=== PATIENT | female | born 1955 | race Caucasian/White ===

== ENCOUNTER 2020-05-10 22:35 | Inpatient (IN) | payer BC, SELFPAY ==
[2020-05-10 22:38] VITALS: BP 135/100; PULSE 66; RESP 20; TEMP 36.1; O2SAT 100; BMI 19.2
--- NOTE | 2020-05-10 22:44 | CTR_ITS ---
PROCEDURE INFORMATION: Exam: CT Abdomen And Pelvis With Contrast Exam date and time: 05/10/2020 10:58 PM Age: 64 years old Clinical indication: Nausea and vomiting; Patient HX: C/O abd pain w n/v; Additional info: Abdominal pain TECHNIQUE: Imaging protocol: Computed tomography of the abdomen and pelvis with intravenous contrast. Radiation optimization: All CT scans at this facility use at least one of these dose optimization techniques: automated exposure control; mA and/or kV adjustment per patient size (includes targeted exams where dose is matched to clinical indication); or iterative reconstruction. Contrast material: VISI 320; Contrast volume: 75 ml; Contrast route: INTRAVENOUS (IV); COMPARISON: No relevant prior studies available. RADIATION DOSE METRICS: Total DLP (mGy-cm): 199.88 FINDINGS: Liver: Normal. No mass. Gallbladder and bile ducts: Normal. No calcified stones. No ductal dilation. Pancreas: Normal. No ductal dilation. Spleen: Normal. No splenomegaly. Adrenal glands: Normal. No mass. Kidneys and ureters: Normal. No hydronephrosis. Stomach and bowel: There are prominent fluid-filled loops of small bowel present proximally with nondilated small bowel loops seen distally, findings compatible with small-bowel obstruction. The transition is indeterminate. Diverticula are seen on the sigmoid colon. There are no inflammatory changes seen to suggest diverticulitis. Appendix: No evidence of appendicitis. Intraperitoneal space: Unremarkable. No free air. No significant fluid collection. Vasculature: Unremarkable. No abdominal aortic aneurysm. Lymph nodes: Unremarkable. No enlarged lymph nodes. Urinary bladder: Unremarkable as visualized. Reproductive: Unremarkable as visualized. Bones/joints: Unremarkable. No acute fracture. Soft tissues: Unremarkable. CT/CT abdomen pelvis w con* [id number] IMPRESSION: 1. Dilated fluid-filled loops of small bowel are seen proximally with nondilated loops present distally, findings compatible with a small-bowel obstruction. The transition is indeterminate. 2. Diverticulosis of the sigmoid colon Radiation Dose CTDIVOL = (mGy): DLP = 199.88 (mGy-cm)
[2020-05-10 23:01] LABS: Basophils # 0.1 10^3/uL (0.0-0.1); Basophils % 0.3 %; Eosinophils # 0.3 10^3/uL (0.0-0.8); Hematocrit 47.1 % (37.0-47.0); Hemoglobin 15.8 g/dL (11.5-15.3); Lymphocytes # 5.7 10^3/uL (0.8-4.8); Mean Corpuscular HGB Conc 33.5 g/dL (30.0-36.0); Mean Corpuscular Hemoglobin 30.6 pg (28.0-34.0); Mean Corpuscular Volume 91.3 fL (81-99); Mean Platelet Volume 10.3 fL (7.4-10.4); Monocytes # 1.3 10^3/uL (0.2-0.9); Monocytes % 5.2 %; Neutrophils # 18.16 10^3/uL (1.8-7.7); Neutrophils % 70.6 %; Nucleated Red Blood Cells % 0 %; Platelet Count 283 10^3/cmm (130-400); Red Blood Count 5.16 10^6/uL (4.1-5.3); Red Cell Distribution Width 12.1 % (12.1-15.1); White Blood Count 25.7 10^3/uL (4.0-10.0)
[2020-05-10] MEDS: sodium chloride 0.9% 1,000 ML 999 ML IV (23:12)
[2020-05-10 23:17] LABS: Alanine Aminotransferase 21 U/L (0-33); Albumin Level 4.6 g/dL (3.5-5.2); Alkaline Phosphatase 107 IU/L (35-105); Anion Gap 17.9 (5-19); Aspartate Amino Transferase 19 U/L (0-32); Blood Urea Nitrogen 13 mg/dL (8-23); Calcium 10.4 mg/dL (8.5-10.5); Carbon Dioxide 27 mmol/L (22-29); Chloride 98 mmol/L (98-107); Globulin 3.4 g/dL (1.3-4.6); Glucose 153 mg/dL (65-115); Lipase 40 U/L (13-60); Osmolality Calculated 291 mOsm/kg (285-295); Potassium 3.9 mmol/L (3.5-5.1); Sodium 139 mmol/L (136-145); Total Bilirubin 0.3 mg/dL (0.15-1.2)
[2020-05-10 23:21] LABS: Alcohol Level < 10 mg/dL (0-10)
[2020-05-10] MEDS: iodixanol 320 mg/mL 100mL Btl IV (23:34)
[2020-05-10 23:38] LABS: Slide Review Slide Review Perform
[2020-05-10] MEDS: ondansetron 2 mg/ML SDV 2 mL 4 MG IVP (23:52)
[2020-05-10 23:53] VITALS: RESP 22; O2SAT 100
[2020-05-10] MEDS: morphine 4 mg/mL SDV 1 mL IVP (23:53)
--- NOTE | 2020-05-10 23:54 | ED_ITS ---
HPI - Nausea/Vomiting/Diarrhea General: Chief complaint: Nausea/Vomiting/Diarrhea Stated complaint: N/V - ULCER HX Time Seen by Provider: 05/10/20 22:43 History of Present Illness: HPI Narrative: 64-year-old female presenting with epigastric and periumbilical belly pain starting a couple of hours prior to arrival associated with nausea and vomiting. She evidently has a history of an ulcer as well as an intussusception in the past. She denies any fever. No diarrhea. No one else is been sick. No blood in the stool. MD elicited complaint: nausea, vomiting and abdominal pain Pertinent past history: abdominal surgery Onset (ago): hour(s) Description of vomiting: food contents and watery Associated nausea: Yes Associated abdominal pain: Yes Location of pain: Epigastric and Periumbilical Radiation: does not radiate Pain consistency: constant Severity: severe Quality: stabbing and aching Exacerbating factors: none Relieving factors: movement Associated symtoms: Reports nausea; Denies anxiety, change in vision, chest pain, cough, dizziness, dysuria, fevers/chills, headache(s) or palpitations Review of Systems Const: Denies: fever(s) Eyes: Denies: change in vision ENMT: Denies: odynophagia, swelling of lips/tongue or sinus pain Card: Denies: chest pain, palpitations or irregular heart rhythm Resp: Denies: dyspnea, productive cough, non-productive cough or wheezing GI: Reports: nausea : Denies: dysuria Musc: Denies: back pain or joint warmth Skin/Breast: Denies: rash, pruritus or erythema Neuro: Denies: headache(s), dizziness or vertigo Psych: Denies: anxiety Physical Exam Const: GENERAL APPEARANCE: well developed and ill appearing ORIEN TATION/CONSCIOUSNESS: Yes oriented to person, Yes oriented to place and Yes oriented to time HENMT: COMMON NORMALS: normocephalic, external ears normal and Normal external nose present HEAD & SCALP: normocephalic FACE & SINUS: normal facial exam NOSE: Normal external nose present and No nasal discharge present EXTERNAL EAR: Yes external ears normal THROAT: posterior oropharynx normal; no peritonsillar mass Eye: COMMON NORMALS: Equal, round and reactive pupils present, EOMs intact bilaterally and conjunctivae normal EYELID: eyelids normal CONJUNCTIVA: Y es conjunctivae normal PUPIL: Yes Equal, round and reactive pupils present Neck/C-Spine: GENERAL: No tracheal deviation Chest: COMMONS NORMALS: normal inspection of the chest CHEST: No tenderness Resp: COMMON NORMALS: clear to auscultation bilaterally EFFORT & INSPECTION: No tachypneic, No respiratory distress, No retractions, No uses accessory muscles and No tracheal deviation AUSCULTATION: clear to auscultation bilaterally, no rhonchi, no wheezes and lung sounds not diminished Cardio: COMMON NORMALS: regular rate and regular rhythm RATE: regular rate RHYTHM: regular rhythm HEART SOUNDS: no murmurs PERIPHERAL PULSES: radial pulses present GI: INSPECTION: No abdominal distension AUSCULTATION: No Hyperactive bowel sounds present and No Hypoactive bowel sounds present PALPATION: Yes Firmness to palpation present (GI), Yes Tenderness to palpation present (GI), Yes Guarding due to palpation present (GI) and No Rigid due to palpation Neuro: SENSORIUM/ORIENTATION: Yes oriented to person, Yes oriented to place and Yes oriented to time Psych: COMMON NORMALS: mental status grossly normal Skin: COMMON NORMALS: no rashes or lesions noted GENERAL SKIN EXAM: no rashes or lesions noted Course Consultations: Consultation #1: duran Vital Signs: Vital signs: Vital Signs Temperature 97.0 F L 05/10/20 22:38 Pulse Rate 80 05/11/20 01:29 Respiratory Rate 18 05/11/20 01:29 Blood Pressure 129/102 05/11/20 01:29 Pulse Oximetry 98 05/11/20 01:29 MDM - Nausea/Vomiting/Diarrhea MDM Narrative: Medical decision making narrative: 64-year-old female with epigastric and periumbilical pain and vomiting. Pain improved after morphine and Zofran. She has a white blood cell count of 26. Her electrolytes are normal. CT reveals dilated loops of small bowel consistent with small bowel obstruction. NG tube is been placed in the ER. She will be admitted to the hospitalist service, with surgical consultation if necessary. Lab Data: Labs: Lab Results 05/10/20 05/10/20 05/10/20 Range/Units 22:57 22:57 22:57 WBC 25.7 H (4.0-10.0) 10^3/ uL RBC 5.16 (4.1-5.3) 10^6/u L Hgb 15.8 H (11.5-15.3) g/dL Hct 47.1 H (37.0-47.0) % MCV 91.3 (81-99) fL MCH 30.6 (28.0-34.0) pg MCHC 33.5 (30.0-36.0) g/dL RDW 12.1 (12.1-15.1) % Plt Count 283 (130-400) 10^3/c mm MPV 10.3 (7.4-10.4) fL Neut % (Auto) 70.6 % Lymph % (Auto) 22.0 % White % (Auto) 5.2 % Eos % (Auto) 1.0 % Baso % (Auto) 0.3 % Neut # (Auto) 18.16 H (1.8-7.7) 10^3/u L Lymph # (Auto) 5.7 H (0.8-4.8) 10^3/u L White # (Auto) 1.3 H (0.2-0.9) 10^3/u L Eos # (Auto) 0.3 (0.0-0.8) 10^3/u L Baso # (Auto) 0.1 (0.0-0.1) 10^3/u L Nucleated RBC % (a uto) 0 % Nucleated RBCs # 0.0 /100WBC Sodium 139 (136-145) mmol/L Potassium 3.9 (3.5-5.1) mmol/L Chloride 98 (98-107) mmol/L Carbon Dioxide 27 (22-29) mmol/L Anion Gap 17.9 (5-19) BUN 13 (8-23) mg/dL Creatinine 1.1 H (0.5-0.9) mg/dL GFR Calculation 50.0 L (90-130) mL/min Glucose 153 H (65-115) mg/dL Calculated Osmolal ity 291 (285-295) mOsm/k g Lactate 2.0 (0.5-2.2) mmol/L Calcium 10.4 (8.5-10.5) mg/dL Total Bilirubin 0.3 (0.15-1.2) mg/dL AST 19 (0-32) U/L ALT 21 (0-33) U/L Alkaline Phosphata se 107 H (35-105) IU/L Total Protein 8.0 (6.6-8.7) g/dL Albumin 4.6 (3.5-5.2) g/dL Globulin 3.4 (1.3-4.6) g/dL Lipase 40 (13-60) U/L Ethyl Alcohol < 10 (0-10) mg/dL Discharge Plan Discharge Patient Disposition: Admitted As Inpatient Admit Provider: Saroj Randhawa Clinical Impression: Small bowel obstruction Condition: Stable Discharge Date/Time: 05/11/20 02:06 Coding Level of Care Code ED Page Makeup System Operator for Chg Fwd Exam Comprehensive
[2020-05-11] VITALS (13 sets, daily range): BP systolic 119–156; BP diastolic 66–102; PULSE 60–80; RESP 12–22; TEMP 36.4–36.8; O2SAT 94–100
--- NOTE | 2020-05-11 00:07 | P.HP_ITS ---
Providers/Chief Complaint Admitting Physician: Saroj Randhawa Chief Complaint: N/V - ULCER HX History of Present Illness Sheridan Love is a 64 year old female With a past medical history significant for peptic ulcer disease, intussusception requiring surgery was presented to the hospital with abdominal pain. Initially noted abdominal pain 2 weeks prior for which she was given Mylanta and Benadryl. Stated this had initially helped however on recurrence of abdominal pain prior to arrival she was not able to tolerate as she was very nauseous and subsequently had a nonbloody emesis. Upon arrival to emergency room laboratory workup was within normal limits. Abdominal imaging showed findings suspicious for partial small bowel obstruction. Nasogastric tube was placed. While in emergency room however patient did have a bowel movement. Denies any recent fever or chills. Also denies chest pain or shortness of breath. Review of Systems Const: Denies: fever(s) Eyes: Denies: change in vision ENMT: Denies: odynophagia, swelling of lips/tongue or sinus pain Card: Denies: chest pain, palpitations or irregular heart rhythm Resp: Denies: dyspnea, productive cough, non-productive cough or wheezing GI: Reports: nausea : Denies: dysuria Musc: Denies: back pain or joint warmth Skin/Breast: Denies: rash, pruritus or erythema Neuro: Denies: headache(s), dizziness or vertigo Psych: Denies: anxiety Medications/Allergies Home Medications Medication Instructions Recorded Confirmed Last Taken Type cetirizine 10 mg PO DAILY 05/11/20 05/11/20 Unknown History cholecalciferol (vitamin D3) 25 mcg PO DAILY 05/11/20 05/11/20 Unknown History [Vitamin D3] levothyroxine [Euthyrox] 50 mcg PO DAILY 05/11/20 05/11/20 Unknown History montelukast 10 mg PO DAILY 05/11/20 05/11/20 Unknown History pantoprazole 40 mg PO DAILY 05/11/20 05/11/20 Unknown History tiotropium bromide [Spiriva 2 puff INHALATION BID 05/11/20 05/11/20 Unknown History Respimat] Allergies Allergy/AdvReac Type Severity Reaction Status Date / Time No Known Allergies Allergy Verified 05/10/20 22:38 Vitals/I&O/Wt Last Vital Signs Temp 98.3 F 05/13/20 15:28 Pulse 72 05/13/20 15:28 Resp 16 05/13/20 15:28 BP 151/81 05/13/20 15:28 Pulse Ox 98 05/13/20 15:28 05/13/20 05/13/20 05/13/20 06:59 14:59 22:59 Intake Total 1180 / 3008.333 384 / 384 Output Total 400 / 401 Balance 780 / 2607.333 384 / 384 Physical Exam Narrative: EXAM NARRATIVE: General: Alert, awake, nad HEENT : NG in place - Clamped Chest - non-labored respiration Abd: Soft Nontender Ext : No edema Psych: Calm Data : 05/13/20 04:46 05/13/20 04:46 A&P Assessment and plan (1) Small bowel obstruction: Status: Acute Partial Small bowel obstruction - Hx of Intussusception - Will keep NPO - Continue nasogastric tube to low intermittent suction - Pain control - Consider General surgery consult - Repeat labs in a.m. - Zofran p.r.n. for nausea Peptic ulcer disease - Protonix 40 mg IV daily DVT ppx - SCDs Attestations Medical Necessity Statement*: Patient presented to the hospital with partial small bowel obstruction requiring nasogastric tube placement. Will require over 2 midnight stay in hospital for evaluation and treatment. Coding Level of Care Code Acute Risk Adjustment Specialist for [facility] Fwd Diagnoses Small bowel obstruction K56.609
--- NOTE | 2020-05-11 00:24 | PM.HP ---
Providers/Chief Complaint Chief Complaint: N/V - ULCER HX History of Present Illness 64-year-old female with a past medical history significant for peptic ulcer disease and intussusception who presented to the hospital with abdominal pain. This was associated with multiple episodes of nausea and vomiting. Upon arrival to emergency room or laboratory workup showed a WBC of 25.7, hemoglobin of 15.8, hematocrit of 47.1 and platelet count 283. sodium 139, potassium 3.8, chloride 98, bicarb 27, BUN 13 and creatinine 1.1. Imaging studies included a CT abdomen and pelvis which showed dilated fluid filled loops of small bowel consistent with small-bowel obstruction. Addition was noted to have diverticulosis of sigmoid colon. Patient was given a normal saline bolus and morphine 4 mg IV x1. Additionally had a nasogastric tube placed to low intermittent suction. Admitted to the hospital for further evaluation treatment. Review of Systems General: Reports: 10 or more systems reviewed and unremarkable except in HPI and below Medications/Allergies Allergies Allergy/AdvReac Type Severity Reaction Status Date / Time No Known Allergies Allergy Verified 05/10/20 22:38 Vitals/I&O/Wt Last Vital Signs Temp 97.0 F L 05/10/20 22:38 Pulse 69 05/11/20 00:10 Resp 16 05/11/20 00:10 BP 156/83 05/11/20 00:10 Pulse Ox 94 05/11/20 00:10 Weight last 48 hrs Weight 47.627 kg Physical Exam Narrative: EXAM NARRATIVE: General- NAD HEENT -grossly unremarkable - NG in place Chest- tender to palpation on left chest wall Respiratory -clear to auscultation bilaterally CVS -regular rate rhythm no obvious murmurs Abdomen- diffuse tenderness Extremities-no edema Data : 05/10/20 22:57 05/10/20 22:57 A&P Assessment and plan (1) Small bowel obstruction: Status: Acute Small bowel obstruction - Hx of Intussusception - NPO - Continue NS at 100 cc/hr - Continue NG with LIS - Consider surgery consult in am Peptic ulcer disease - Protonix 40 mg IV daily DVT ppx - SCDs only - No heparin due to possible inv Attestations Medical Necessity Statement*: Admitted with acute small-bowel obstruction requiring nasogastric tube and possible surgical intervention will likely require over 2 midnight stay in hospital for evaluation treatment Time Spent in Patient Care: Greater than 35 minutes Coding Level of Care Code Acute Felt Hat Mellowing Machine Operator for Chg Fwd Diagnoses Small bowel obstruction K56.609
--- NOTE | 2020-05-11 01:18 | XRR_ITS ---
PROCEDURE INFORMATION: Exam: XR Chest, 1 View Exam date and time: 05/11/2020 1:48 AM Age: 64 years old Clinical indication: Device placement; Ng tube TECHNIQUE: Imaging protocol: XR of the chest Views: 1 view. COMPARISON: CT chest w con* [id number] 02/08/2019 9:19 AM FINDINGS: Tubes, catheters and devices: A nasogastric tube extends into the projection of the stomach in satisfactory position. Lungs: Unremarkable. No consolidation. Pleural space: Unremarkable. No pleural effusion. No pneumothorax. Heart/Mediastinum: Unremarkable. No cardiomegaly. Bones/joints: Unremarkable. XR/XR chest 1V portable [id number] IMPRESSION: No acute cardiopulmonary abnormality.
[2020-05-11] MEDS: cetacaine Spray 5 gm Can 1 SPRAY TOPICAL (01:33)
[2020-05-11] MEDS: sodium chloride 0.9% 1,000 ML 100 ML IV ×2 (04:55→13:42)
[2020-05-11] MEDS: pantoprazole 40 mg SDV IVP (04:56)
[2020-05-11] MEDS: morphine 4 mg/mL SDV 1 mL IVP ×2 (04:56→20:25)
--- NOTE | 2020-05-11 05:01 | PC.NURSE ---
PT ARRIVED TO CSU 112-2 VIA BED. PT DENIES PAIN. VS WNL. NG TUBE WAS HOOKED UP TO SUCTION. PT ORIENTATED TO ROOM. RN GAVE IVP. WILL CONTINUE TO MONITOR.
[2020-05-11 05:39] LABS: Basophils % 0.2 %; Eosinophils # 0.1 10^3/uL (0.0-0.8); Eosinophils % 0.6 %; Hematocrit 42.7 % (37.0-47.0); Lymphocytes # 1.5 10^3/uL (0.8-4.8); Lymphocytes % 9.7 %; Mean Corpuscular HGB Conc 32.8 g/dL (30.0-36.0); Mean Corpuscular Hemoglobin 30.8 pg (28.0-34.0); Mean Corpuscular Volume 94.1 fL (81-99); Mean Platelet Volume 10.9 fL (7.4-10.4); Monocytes # 1.2 10^3/uL (0.2-0.9); Monocytes % 8.3 %; Neutrophils # 12.11 10^3/uL (1.8-7.7); Neutrophils % 80.6 %; Nucleated Red Blood Cells % 0 %; Platelet Count 217 10^3/cmm (130-400); Red Blood Count 4.54 10^6/uL (4.1-5.3); Red Cell Distribution Width 12.4 % (12.1-15.1)
[2020-05-11 06:11] LABS: Alanine Aminotransferase 17 U/L (0-33); Albumin Level 3.8 g/dL (3.5-5.2); Alkaline Phosphatase 85 IU/L (35-105); Blood Urea Nitrogen 14 mg/dL (8-23); Calcium 9.2 mg/dL (8.5-10.5); Carbon Dioxide 26 mmol/L (22-29); Chloride 104 mmol/L (98-107); Globulin 2.9 g/dL (1.3-4.6); Glucose 101 mg/dL (65-115); Osmolality Calculated 289 mOsm/kg (285-295); Sodium 139 mmol/L (136-145); Total Bilirubin 0.3 mg/dL (0.15-1.2); Total Protein 6.7 g/dL (6.6-8.7)
[2020-05-11 06:19] LABS: Aspartate Amino Transferase 20 U/L (0-32)
--- NOTE | 2020-05-11 07:38 | PC.NURSE ---
REPORT WAS GIVEN TO ON COMING NURSE. PT HAS HAD 0 OUT[address] IN NG TUBE. [address] OSEGUERA AWARE. PT DENIES PAIN AT THIS POINT IN TIME. WILL CONTINUE TO MONITOR.
--- NOTE | 2020-05-11 08:30 | PC.NURSE ---
NG tube maintenance performed. Air bolus with auscultation performed to verify stomach placement, confirmed. 2-50 ml warm water irrigation performed. Gastric content returned through tube, yellow with some sediment. Nurse to continue to monitor.
--- NOTE | 2020-05-11 08:57 | PM.PN ---
Subjective Subjective: Interval history: Patient was feeling better in am. Abdominal pain had improved. 300 cc output form ng Vitals/I&O/Wt Last Vital Signs Temp 98.3 F 05/11/20 15:16 Pulse 69 05/11/20 15:16 Resp 15 05/11/20 15:16 BP 138/73 05/11/20 15:16 Pulse Ox 100 05/11/20 15:16 05/11/20 05/11/20 05/11/20 06:59 14:59 22:59 Intake Total 978.333 / 978.333 50 / 1028.333 Balance 978.333 / 978.333 50 / 1028.333 Weight last 48 hrs Weight 47.627 kg Physical Exam Narrative: EXAM NARRATIVE: General- NAD HEENT -grossly unremarkable - NG in place Chest- tender to palpation on left chest wall Respiratory -clear to auscultation bilaterally CVS -regular rate rhythm no obvious murmurs Abdomen- diffuse tenderness Extremities-no edema Data : 05/11/20 04:20 05/11/20 04:20 A&P Assessment and plan (1) Small bowel obstruction: Status: Acute Small bowel obstruction - Hx of Intussusception - NPO - Continue NS at 100 cc/hr - Continue NG with LIS - Consider surgery consult in am - If minimal output will clamp ng in am Peptic ulcer disease - Protonix 40 mg IV daily DVT ppx - SCDs only - No heparin due to possible inv Attestations Medical Necessity Statement*: Will require further hospitalization for management of sbo Time Spent in Patient Care: 16 - 35 minutes Coding Level of Care Code Acute Pharmacy Retail Support Specialist for [facility] Janey Diagnoses Small bowel obstruction K56.609
--- NOTE | 2020-05-11 09:58 | PC.CHAP ---
Pastoral Care Encounter/Spiritual Assessment Type of Contact [] Declined waste examiner visit [] Patient/Family/Request visit [] Outpatient visit [] Follow-up visit [] Physician referral [] Code/Alert [] Routine visit [] Staff referral [] Actively dying [] Patient sleeping [] Family support [] [] Out of room [] Palliative care [] [] Receiving care in room [] Pre-surgical visit [] Trauma [] Long length of stay [] ICU visit [] Other: Relational/Emotional Strength [] Patient feels connected with others/family/visitors/staff [] Distress [] Loneliness/isolation [] Abandonment Spirituality of Patient [] Person of Jemma [] Attends Anabaptist of their Jemma [] Believes in Prayer [] Reads Bible or Church materials [] There are Spiritual issues to be addressed Palliative Medicine Physician Interventions [x] Prayer [] Active listening [] Non-anxious presence [] Spiritual/emotional support [] Crisis/trauma care [] Spiritual counseling [] Bereavement support [] Provided bereavement packet [] Provided Bible/devotional materials [] Provided toy/stuffed animal, coloring book to patient or family member [] Provided Communion [] Anointing/[place] [] Salvation [x] Completed spiritual assessment [] Other: Impact on Illness or Injury [] Angry [] Fearful [] Anxious [] Often cries [] Exhaustion [] Unable to work [] Unable to attend mormon [] Unable to walk/stand [] Unable to read [] Unable to drive [] Unable to eat/drink [] Unable to sleep [] Unable to be with family [] Patient intubated [] Other: Summary Time spent with patient
--- NOTE | 2020-05-11 18:09 | PC.NURSE ---
Uneventful shift. Patient denies any complaints of nausea. A total of 350 ml gastric output with 150 ml total flush volume. No needs identified at this time. Nurse to continue to monitor.
--- NOTE | 2020-05-11 21:27 | PC.NURSE ---
Patient was complaining of a headache. PRN pain medication given. Patient is now resting comfortably. Patient has no other complaints at this time. Will monitor.
[2020-05-12] VITALS (7 sets, daily range): BP systolic 115–158; BP diastolic 68–80; PULSE 67–86; RESP 14–21; TEMP 36.6–37.4; O2SAT 97–99
[2020-05-12] MEDS: sodium chloride 0.9% 1,000 ML 100 ML IV ×3 (00:18→18:35)
[2020-05-12] MEDS: pantoprazole 40 mg SDV IVP (02:02)
--- NOTE | 2020-05-12 04:29 | PC.NURSE ---
Patient has no complaints at this time. Will monitor.
[2020-05-12 05:01] LABS: Basophils % 0.3 %; Eosinophils # 0.2 10^3/uL (0.0-0.8); Eosinophils % 2.3 %; Hematocrit 38.1 % (37.0-47.0); Hemoglobin 12.3 g/dL (11.5-15.3); Lymphocytes # 2.2 10^3/uL (0.8-4.8); Lymphocytes % 23.5 %; Mean Corpuscular HGB Conc 32.3 g/dL (30.0-36.0); Mean Corpuscular Hemoglobin 30.8 pg (28.0-34.0); Mean Corpuscular Volume 95.3 fL (81-99); Mean Platelet Volume 10.4 fL (7.4-10.4); Monocytes # 0.9 10^3/uL (0.2-0.9); Monocytes % 9.9 %; Neutrophils # 5.98 10^3/uL (1.8-7.7); Neutrophils % 63.7 %; Nucleated Red Blood Cells % 0 %; Platelet Count 169 10^3/cmm (130-400); Red Cell Distribution Width 12.5 % (12.1-15.1); White Blood Count 9.4 10^3/uL (4.0-10.0)
[2020-05-12 05:29] LABS: Alanine Aminotransferase 12 U/L (0-33); Albumin Level 3.2 g/dL (3.5-5.2); Alkaline Phosphatase 74 IU/L (35-105); Anion Gap 12.2 (5-19); Aspartate Amino Transferase 15 U/L (0-32); Blood Urea Nitrogen 10 mg/dL (8-23); Calcium 8.4 mg/dL (8.5-10.5); Carbon Dioxide 24 mmol/L (22-29); Chloride 106 mmol/L (98-107); Globulin 2.6 g/dL (1.3-4.6); Glucose 81 mg/dL (65-115); Osmolality Calculated 284 mOsm/kg (285-295); Potassium 4.2 mmol/L (3.5-5.1); Sodium 138 mmol/L (136-145); Total Bilirubin 0.6 mg/dL (0.15-1.2); Total Protein 5.8 g/dL (6.6-8.7)
--- NOTE | 2020-05-12 09:01 | PC.CHAP ---
Pastoral Care Encounter/Spiritual Assessment Type of Contact [] Declined web development consultant visit [] Patient/Family/Request visit [] Outpatient visit [] Follow-up visit [] Physician referral [] Code/Alert [x] Routine visit [] Staff referral [] Actively dying [] Patient sleeping [] Family support [] [] Out of room [] Palliative care [] [] Receiving care in room [] Pre-surgical visit [] Trauma [] Long length of stay [] ICU visit [] Other: Relational/Emotional Strength [] Patient feels connected with others/family/visitors/staff [] Distress [] Loneliness/isolation [] Abandonment Spirituality of Patient [] Person of Jemma [] Attends Samaritan of their Jemma [] Believes in Prayer [] Reads Bible or Druze materials [] There are Spiritual issues to be addressed Flight Control Manager Interventions [x] Prayer [x] Active listening [x] Non-anxious presence [x] Spiritual/emotional support [] Crisis/trauma care [] Spiritual counseling [] Bereavement support [] Provided bereavement packet [] Provided Bible/devotional materials [] Provided toy/stuffed animal, coloring book to patient or family member [] Provided Communion [] Anointing/[place] [] Salvation [x] Completed spiritual assessment [] Other: Impact on Illness or Injury [] Angry [] Fearful [] Anxious [] Often cries [] Exhaustion [] Unable to work [] Unable to attend latter day [] Unable to walk/stand [] Unable to read [] Unable to drive [] Unable to eat/drink [] Unable to sleep [] Unable to be with family [] Patient intubated [] Other: Summary patients color much better today... hoping to drink or eat today.. Time spent with patient 10 min
--- NOTE | 2020-05-12 11:14 | PC.NURSE ---
pt unhooked from suction per dr garzon verbal order.
--- NOTE | 2020-05-12 18:54 | P.PN_ITS ---
Subjective Subjective: Interval history: Continued to improve. Passing gas. No abdominal pain. 500cc ouput since admission however multiple flushes. No fever, chills, nausea or vomiting. Vitals/I&O/Wt Last Vital Signs Temp 99.4 F 05/12/20 15:20 Pulse 86 05/12/20 15:20 Resp 17 05/12/20 15:20 BP 120/75 05/12/20 15:20 Pulse Ox 99 05/12/20 15:20 05/12/20 05/12/20 05/12/20 06:59 14:59 22:59 Intake Total 1050 / 2078.333 928.333 / 928.333 900 / 1828.333 Output Total 450 / 450 Balance 600 / 1628.333 927.333 / 927.333 900 / 1827.333 Weight last 48 hrs Weight 47.627 kg Physical Exam Narrative: EXAM NARRATIVE: General: Alert, awake, nad HEENT : NG in place - Clamped Chest - non-labored respiration Abd: Soft Nontender Ext : No edema Psych: Calm Data : 05/12/20 04:29 05/12/20 04:29 A&P Assessment and plan (1) Small bowel obstruction: Status: Acute Small bowel obstruction - Hx of Intussusception - Minimal output from NG - + Flatulence / BM on arrival in Er - Will clamp NG - Start CLD - If tolerated will discontinue NG - Continue NS at 100 cc/hr - KUB in am Peptic ulcer disease - Protonix 40 mg IV daily DVT ppx - SCDs only - Will add heparin 5000 units BID Attestations Medical Necessity Statement*: Will required further hospitalization for ongoing management of small bowel obstruction Time Spent in Patient Care: Greater than 35 minutes Coding Level of Care Code Acute Recreation Instructor for [facility] Fwd Diagnoses Small bowel obstruction K56.609
--- NOTE | 2020-05-12 22:01 | PC.NURSE ---
NG tube removed per order. Patient tolerated well. Tip of NG tube intact after removal. No issues. Patient has no complaints at this time. Will monitor.
[2020-05-13] VITALS (8 sets, daily range): BP systolic 127–151; BP diastolic 65–82; PULSE 63–87; RESP 14–19; TEMP 36.6–37.3; O2SAT 95–100
[2020-05-13] MEDS: sodium chloride 0.9% 1,000 ML 100 ML IV ×2 (03:23→20:20)
[2020-05-13] MEDS: pantoprazole 40 mg SDV IVP (03:23)
[2020-05-13 06:29] LABS: Basophils % 0.3 %; Eosinophils # 0.2 10^3/uL (0.0-0.8); Eosinophils % 2.1 %; Hematocrit 37.6 % (37.0-47.0); Hemoglobin 12.5 g/dL (11.5-15.3); Lymphocytes # 2.2 10^3/uL (0.8-4.8); Lymphocytes % 31.6 %; Mean Corpuscular HGB Conc 33.2 g/dL (30.0-36.0); Mean Corpuscular Hemoglobin 30.9 pg (28.0-34.0); Mean Corpuscular Volume 92.8 fL (81-99); Monocytes # 0.9 10^3/uL (0.2-0.9); Monocytes % 12.3 %; Neutrophils # 3.74 10^3/uL (1.8-7.7); Neutrophils % 53.3 %; Nucleated Red Blood Cells % 0 %; Platelet Count 177 10^3/cmm (130-400); Red Blood Count 4.05 10^6/uL (4.1-5.3)
[2020-05-13 06:59] LABS: Alanine Aminotransferase 13 U/L (0-33); Albumin Level 3.5 g/dL (3.5-5.2); Alkaline Phosphatase 77 IU/L (35-105); Aspartate Amino Transferase 15 U/L (0-32); Blood Urea Nitrogen 10 mg/dL (8-23); Calcium 8.8 mg/dL (8.5-10.5); Carbon Dioxide 25 mmol/L (22-29); Chloride 106 mmol/L (98-107); Globulin 2.5 g/dL (1.3-4.6); Glucose 83 mg/dL (65-115); Osmolality Calculated 288 mOsm/kg (285-295); Sodium 140 mmol/L (136-145); Total Bilirubin 0.6 mg/dL (0.15-1.2)
--- NOTE | 2020-05-13 07:00 | XR_ITS ---
WS: [id number] XR KUB [id number] REASON FOR EXAM: sbo FINDINGS: There is a large amount of stool through the entire colon including the rectal vault. There is a comp shea staple line in the right upper pelvis region. There are segments of mild to moderately distended small bowel in the mid lower abdomen and upper pelvis. No free air is noted. XR/XR KUB [id number] IMPRESSION: Dilated small bowel is described above.
--- NOTE | 2020-05-13 15:49 | P.PN_ITS ---
Subjective Subjective: Interval history: Patient continue to improve overnight tolerating clear liquid diet and removal of nasogastric tube. [place] slight midepigastric discomfort however noted overall improvement. Continued to have flatulence. No bowel movement. No fever, chills, nausea or vomiting. Vitals/I&O/Wt Last Vital Signs Temp 98.3 F 05/13/20 15:28 Pulse 72 05/13/20 15:28 Resp 16 05/13/20 15:28 BP 151/81 05/13/20 15:28 Pulse Ox 98 05/13/20 15:28 05/13/20 05/13/20 05/13/20 06:59 14:59 22:59 Intake Total 1180 / 3008.333 384 / 384 Output Total 400 / 401 Balance 780 / 2607.333 384 / 384 Physical Exam Narrative: EXAM NARRATIVE: General: Alert, awake, nad HEENT : NG in place - Clamped Chest - non-labored respiration Abd: Soft Nontender Ext : No edema Psych: Calm Data : 05/13/20 04:46 05/13/20 04:46 A&P Assessment and plan (1) Small bowel obstruction: Status: Acute Partial Small bowel obstruction - Hx of Intussusception - Tolerated CLD last evening/NG was removed - This am complained of abdominal discomfort - Repeat KUB showed - constipation with stool in rectal vault - Will keep NPO for now - Milk of mag 150 ml po x 1 - Fleet enema x 1 now - Will consider milk & molassas enema in evening - Repeat KUB in am - D/w surgery Peptic ulcer disease - Protonix 40 mg IV daily DVT ppx - SCDs only - Heparin 5000 units BID Attestations Medical Necessity Statement*: Due to ongoing constipation and abdominal discomfort will require additional hospitalization. Time Spent in Patient Care: Greater than 35 minutes (>than 50% of time spent in counselling and/or direct pt care on unit) . Coding Level of Care Code Acute Community Resource Consultant for Maurizio Toth Diagnoses Small bowel obstruction K56.609
[2020-05-13] MEDS: Fleet Enema 133 mL Enema PR (16:32)
[2020-05-13] MEDS: magnesium citrate Btl 296 mL 150 ML PO (16:32)
--- NOTE | 2020-05-13 17:32 | PC.RESP ---
Pulmonary Rehab explained to patient .
[2020-05-14] MEDS: pantoprazole 40 mg SDV IVP (03:11)
[2020-05-14 03:58] VITALS: BP 135/82; PULSE 70; RESP 20; TEMP 36.8; O2SAT 96
[2020-05-14] MEDS: sodium chloride 0.9% 1,000 ML 100 ML IV ×2 (06:08→18:24)
--- NOTE | 2020-05-14 07:00 | XR_ITS ---
WS: [id number] ABDOMEN KUB CLINICAL INFORMATION: Renal/ureteral calculi. COMPARISON: May 13, 2020 FINDINGS: Mild to moderate left descending colon and sigmoid constipation. Slightly improved appearance of smal l bowel obstruction in the midabdomen. Persistent air within the colon. Mild lumbar curve. A few pelv ic phleboliths. XR/XR KUB [id number] Impression: 1. Mild to moderate left descending colon and rectosigmoid constipation simila r in appearance to previous. 2. Improved appearance of small bowel obstruction. Persistent air within the c olon.
[2020-05-14 07:34] VITALS: BP 121/74; PULSE 66; RESP 18; TEMP 36.6; O2SAT 99
[2020-05-14 11:29] VITALS: BP 144/79; PULSE 67; RESP 18; TEMP 36.6; O2SAT 99
--- NOTE | 2020-05-14 12:34 | PC.NURSE ---
Rcvd verbal order from Dr Sherwood for Enema. Plumber Helper put order in for enema
[2020-05-14] MEDS: Fleet Enema 133 mL Enema PR (13:04)
--- NOTE | 2020-05-14 13:13 | PC.NURSE ---
patient had medium BM after enema
[2020-05-14 15:33] VITALS: BP 134/77; PULSE 59; RESP 18; TEMP 36.7; O2SAT 100
--- NOTE | 2020-05-14 17:09 | PM.PN ---
Subjective Subjective: Interval history: No acute events overnight. Hospitalist and labs noted. NG tube was removed yesterday and she was started on clear liquid diet though stopped last night for a KUB today morning. KUB still consistent with constipation. Patient has had 2 or 3 very small bowel movements. Denies any nausea. Consistent with some abdominal pain. Vitals/I&O/Wt Last Vital Signs Temp 98.0 F 05/14/20 15:33 Pulse 59 L 05/14/20 15:33 Resp 18 05/14/20 15:33 BP 134/77 05/14/20 15:33 Pulse Ox 100 05/14/20 15:33 05/14/20 05/14/20 05/14/20 06:59 14:59 22:59 Intake Total 980 / 2364 360 / 360 Output Total 400 / 400 Balance 580 / 1964 360 / 360 Physical Exam Narrative: EXAM NARRATIVE: General: No acute distress, AO x3 HEENT: PERRLA, pupils bilaterally equal and reactive Chest: Normal vesicular breath sounds, no added sounds, equal good air entry bilaterally CVS: S1-S2 regular, no murmurs, no tachycardia, no gallops, no rubs Abdomen: Soft, nontender, no organomegaly, bowel sounds sluggish, well-healed laparotomy scar. Neuro: No focal deficits, no facial deformity, AO x3, power 5/5 in all limbs Data : 05/13/20 04:46 05/13/20 04:46 A&P Assessment and plan (1) Small bowel obstruction: Status: Acute (2) Hypothyroidism: Status: Acute (3) COPD (chronic obstructive pulmonary disease): Status: Acute Partial Small bowel obstruction: Hx of Intussusception. Restart clear liquid diet. We will consult surgery. Further enema and possible milk of molasses. Zofran for nausea, Protonix. Peptic ulcer disease: Had EGD in the past which is consistent with gastric ulcers and last colonoscopy around 8 years ago. Hypothyroidism: Restart levothyroxine 50 mcg daily. Continue with montelukast and Spiriva. DVT prophylaxis: SCDs and ambulation, Lovenox. Protonix OPD prophylaxis. Clear liquid diet. Full code Attestations Medical Necessity Statement*: Patient needs further hospitalization for management of small bowel obstruction. Time Spent in Patient Care: 16 - 35 minutes (>than 50% of time spent in counselling and/or direct pt care on unit). Coding Level of Care Code Acute Assembler For Puller Over Hand for Chg Fwd Diagnoses Small bowel obstruction K56.609 Hypothyroidism E03.9 COPD (chronic obstructive pulmonary disease) J44.9
--- NOTE | 2020-05-14 17:12 | P.CONIM_ITS ---
Providers/Reason For Consult Consulting Physican/Specialty*: Dr. Ac Reason for Consult*: Small bowel obstruction Attending Physician: Luis Alberto Brown MD History of Present Illness History of Present Illness Sheridan Love is a 64 year old female who presented to the ER on 05/10/2020 with complaints of periumbilical pain associated multiple episodes of nausea and vomiting. Patient was admitted to the hospital after being diagnosed with small bowel obstruction, an NG tube was placed. She did well over the next 48 hours and the NG tube was discontinued and she was advised to full liquid diet with the plan for discharge but she subsequently started having worsening abdominal pain nausea and vomiting. An abdominal x-ray showed significant constipation. She states that she usually has a bowel movement every 2 to 3 days. She had a small bowel resection for intussusception many years ago. She has had a prior EGD which was diagnosed with gastric ulcers and she had a colonoscopy 8 years ago. She thinks that she is admitted once for small bowel obstruction which was managed conservatively Review of Systems General: Reports: 10 or more systems reviewed and unremarkable except in HPI and below Meds/Allergies Home Medications and Allergies Home Medications Medication Instructions Recorded Confirmed Last Taken Type cetirizine 10 mg PO DAILY 05/11/20 05/11/20 Unknown History cholecalciferol (vitamin D3) 25 mcg PO DAILY 05/11/20 05/11/20 Unknown History [Vitamin D3] levothyroxine [Euthyrox] 50 mcg PO DAILY 05/11/20 05/11/20 Unknown History montelukast 10 mg PO DAILY 05/11/20 05/11/20 Unknown History pantoprazole 40 mg PO DAILY 05/11/20 05/11/20 Unknown History tiotropium bromide [Spiriva 2 puff INHALATION BID 05/11/20 05/11/20 Unknown History Respimat] Allergies Allergy/AdvReac Type Severity Reaction Status Date / Time No Known Allergies Allergy Verified 05/10/20 22:38 Current Medications Current Medications Generic Name Dose Route Start Last Admin Trade Name Freq PRN Reason Stop Dose Admin Sodium Chloride 1,000 mls @ 100 mls/hr 05/11/20 02:04 05/14/20 06:08 Sodium Chloride 0.9% IV 100 mls/hr .Q10H FÉLIX Administration Morphine Sulfate 4 mg 05/11/20 02:04 05/11/20 20:25 Morphine IVP 4 mg Q4H PRN Administration SEVERE PAIN Pantoprazole Sodium 40 mg 05/11/20 03:00 05/14/20 03:11 Protonix IVP 40 mg Q24H FÉLIX Administration Fluticasone/Salmeterol 1 puff 05/11/20 20:00 05/13/20 09:10 Advair Diskus 250-50 INHALATION 1 puff BID.RESPIRATORY FÉLIX Administration Tiotropium [place] 18 mcg 05/11/20 10:12 05/13/20 09:10 Spiriva INHALATION 1 inhalation DAILY.RESPIRATORY FÉLIX Administration PFSH Acute PFSH: Medical History COPD (chronic obstructive pulmonary disease) GERD (gastroesophageal reflux disease) Intussusception Small bowel obstruction Surgical History H/O esophagogastroduodenoscopy S/P small bowel resection Status post colonoscopy Vitals/I&O/Wt Last Vital Signs Temp 98.0 F 05/14/20 15:33 Pulse 59 L 05/14/20 15:33 Resp 18 05/14/20 15:33 BP 134/77 05/14/20 15:33 Pulse Ox 100 05/14/20 15:33 05/14/20 05/14/20 05/14/20 06:59 14:59 22:59 Intake Total 980 / 2364 360 / 360 Output Total 400 / 400 Balance 580 / 1964 360 / 360 Physical Exam Narrative: EXAM NARRATIVE: HEENT: Normocephalic Eye: Sclera /conjunctiva normal Abdomen: Soft to palpation, nontender, nondistended, well-healed laparotomy scar Neurological: Oriented to place person and time Skin: Intact, no lesions appreciated on gross exam A&P Assessment and plan (1) Small bowel obstruction: 64-year-old female with abdominal pain, nausea, vomiting with CT scan findings concerning for small bowel obstruction. Patient is hemodynamically stable with no evidence of peritonitis. KUB shows significant constipation. She has received couple of enemas with no significant output. Abdominal series in the morning Continue clear liquid diet Daily labs 1 bottle of magnesium citrate and milk of molasses enema Patient will need continued inpatient stay to ensure resolution of obstruction. Status: Acute Coding Level of Care Code Acute County Program Technician for Chg Fwd Diagnoses Small bowel obstruction A48.205
[2020-05-14] MEDS: magnesium citrate Btl 296 mL PO (17:28)
[2020-05-14] MEDS: lactulose oral liq 20 gm/30 mL UDC 10 GM PO (17:28)
[2020-05-14] MEDS: enoxaparin 40 mg/0.4 mL Syringe SUBCUT (17:28)
--- NOTE | 2020-05-14 18:38 | PC.NURSE ---
ENEMA THIS NURSE ADMINISTERED MILK OF MOLASSES ENEMA.
[2020-05-14 19:49] VITALS: BP 157/82; PULSE 72; RESP 20; TEMP 36.7; O2SAT 100
[2020-05-14] MEDS: ondansetron 2 mg/ML SDV 2 mL 4 MG IVP (21:38)
[2020-05-14 21:39] VITALS: RESP 16
[2020-05-14] MEDS: morphine 4 mg/mL SDV 1 mL IVP (21:39)
[2020-05-15] VITALS: BP 133/78; PULSE 70; RESP 20; TEMP 36.5; O2SAT 100
[2020-05-15] MEDS: pantoprazole 40 mg SDV IVP (02:20)
[2020-05-15 04:00] VITALS: BP 133/77; PULSE 68; RESP 18; TEMP 36.7; O2SAT 100
[2020-05-15] MEDS: lactulose oral liq 20 gm/30 mL UDC 10 GM PO ×2 (04:46→17:32)
--- NOTE | 2020-05-15 06:00 | XR_ITS ---
WS: [id number] XR abdomen min 2V [id number] REASON FOR EXAM: sbo FINDINGS: Compared to previous examination of 05/14/2020, most of the fecal material in the left colon has been evacuated. The colon is nondistended. No air-filled dilated small bowel loops are identified . No def inite air-fluid levels and dilated small bowel on the upright. No free air. XR/XR abdomen min 2V 65730 IMPRESSION: Evacuation of fecal material from the left colon. No small bowel dilatation is identified.
[2020-05-15 07:29] VITALS: BP 145/81; PULSE 61; RESP 18; TEMP 36.6; O2SAT 100
--- NOTE | 2020-05-15 08:24 | PM.PN ---
Subjective Subjective: Interval history: Patient states that she had multiple bowel movements overnight and she has been having liquid stools. Patient denies any significant abdominal pain though she did have an episode of pain last night. Passing flatus, does not feel distended Vitals/I&O/Wt Last Vital Signs Temp 97.8 F 05/15/20 07:29 Pulse 61 05/15/20 07:29 Resp 18 05/15/20 07:29 BP 145/81 05/15/20 07:29 Pulse Ox 100 05/15/20 07:29 05/14/20 05/15/20 05/15/20 22:59 06:59 14:59 Intake Total 1300 / 2380 720 / 2380 Output Total 900 / 900 100 / 100 Balance 1300 / 1480 -180 / 1480 -100 / -100 Physical Exam Narrative: EXAM NARRATIVE: Abdomen: Soft, nondistended, nontender Data : 05/13/20 04:46 05/13/20 04:46 A&P Assessment and plan (1) Small bowel obstruction: 64-year-old female with small bowel obstruction likely secondary to adhesions associated constipation. She had significant response yesterday to magnesium citrate and milk of molasses enema We will therefore advance her to full liquid diet today though she is a bit scared about eating even though she is hungry 1 bottle magnesium citrate I started her on lactulose 15 cc p.o. twice daily Status: Acute Attestations Medical Necessity Statement*: Small bowel obstruction, appears to be resolving, will need 1 more night of inpatient stay Coding Level of Care Code Acute Television Operator for [facility] Diagnoses Small bowel obstruction K56.609
[2020-05-15] MEDS: levothyroxine 50 mcg Tablet PO (08:58)
[2020-05-15] MEDS: sodium chloride 0.9% 1,000 ML 100 ML IV (08:59)
--- NOTE | 2020-05-15 10:39 | P.PN_ITS ---
Subjective Subjective: Interval history: Sheridan reports she feels little bit better today. She had some abdominal pain last night. She has had multiple bowel movements after magnesium citrate. Surgery has moved her to a full liquid diet. No vomiting. Medications: Reviewed: Yes Vitals/I&O/Wt Last Vital Signs Temp 97.8 F 05/15/20 07:29 Pulse 61 05/15/20 07:29 Resp 18 05/15/20 07:29 BP 145/81 05/15/20 07:29 Pulse Ox 100 05/15/20 07:29 05/14/20 05/15/20 05/15/20 22:59 06:59 14:59 Intake Total 1300 / 1660 1720 / 3380 240 / 240 Output Total 900 / 900 100 / 100 Balance 1300 / 1660 820 / 2480 140 / 140 Physical Exam Narrative: EXAM NARRATIVE: General exam is no apparent distress Cardiovascular regular rate and rhythm without murmur Lungs clear Abdomen is soft, positive bowel sounds. No significant tenderness currently. Extremities no cyanosis clubbing or edema Data : 05/13/20 04:46 05/13/20 04:46 A&P Assessment and plan (1) Small bowel obstruction: Status: Acute (2) Hypothyroidism: Status: Chronic (3) COPD (chronic obstructive pulmonary disease): Status: Chronic Partial small bowel obstruction. This appears to be resolving. Full liquids have been started. Surgery is following. Hopefully discharge tomorrow if continues to improve. Encourage ambulation today. History of peptic ulcer disease. Continue Protonix Hypothyroidism. Continue levothyroxine History of COPD. No evidence of exacerbation. Continue pulmonary toilet Lovenox for DVT prophylaxis Full code No need for laboratory tomorrow Reduce fluids Attestations Medical Necessity Statement*: Needs continued hospital stay for close monitoring for improvement of partial small bowel obstruction Coding Level of Care Code Acute Floating Operator for [facility] Fwd Diagnoses Small bowel obstruction K56.609 Hypothyroidism E03.9 COPD (chronic obstructive pulmonary disease) J44.9
[2020-05-15 11:38] VITALS: BP 138/81; PULSE 69; RESP 18; TEMP 36.6; O2SAT 100
--- NOTE | 2020-05-15 12:39 | PC.CHAP ---
Pastoral Care Encounter/Spiritual Assessment Type of Contact [] Declined screw machine tender visit [] Patient/Family/Request visit [] Outpatient visit [xx] Follow-up visit [] Physician referral [] Code/Alert [xx] Routine visit [] Staff referral [] Actively dying [] Patient sleeping [] Family support [] [] Out of room [] Palliative care [] [] Receiving care in room [] Pre-surgical visit [] Trauma [xx] Long length of stay [] ICU visit [] Other: Relational/Emotional Strength [xx] Patient feels connected with others/family/visitors/staff [] Distress [] Loneliness/isolation [] Abandonment Spirituality of Patient [xx] Person of Jemma [xx] Attends Buddhist of their Jemma [xx] Believes in Prayer [xx] Reads Bible or Christian materials [] There are Spiritual issues to be addressed Director Of Grants Interventions [] Prayer [] Active listening [] Non-anxious presence [] Spiritual/emotional support [] Crisis/trauma care [] Spiritual counseling [] Bereavement support [] Provided bereavement packet [] Provided Bible/devotional materials [] Provided toy/stuffed animal, coloring book to patient or family member [] Provided Communion [] Anointing/[place] [] Salvation [xx] Completed spiritual assessment [] Other: Impact on Illness or Injury [] Angry [] Fearful [] Anxious [] Often cries [] Exhaustion [xx] Unable to work [] Unable to attend tenriism [] Unable to walk/stand [] Unable to read [] Unable to drive [] Unable to eat/drink [] Unable to sleep [] Unable to be with family [] Patient intubated [] Other: Summary Director Of Grants visited both patients in room together. This patient feels great, loves to talk, (is a teacher) but remain another day or two in hospital to make sure everything is healing correctly. She hopes to return to work when discharged. She and roommate both love to talk. Time spent with patient 20 minutes Director Of Grants Eugenie Rondon
[2020-05-15 15:32] VITALS: BP 150/81; PULSE 63; RESP 18; TEMP 36.8; O2SAT 99
[2020-05-15] MEDS: enoxaparin 40 mg/0.4 mL Syringe SUBCUT (17:35)
[2020-05-15 19:56] VITALS: BP 130/78; PULSE 62; RESP 14; TEMP 36.8; O2SAT 98
[2020-05-16] VITALS: BP 123/57; PULSE 65; RESP 17; TEMP 36.8; O2SAT 97
[2020-05-16] MEDS: pantoprazole 40 mg SDV IVP (03:28)
[2020-05-16 04:00] VITALS: BP 136/74; PULSE 74; RESP 18; TEMP 36.6; O2SAT 96
[2020-05-16] MEDS: lactulose oral liq 20 gm/30 mL UDC 10 GM PO ×2 (05:49→17:22)
[2020-05-16] MEDS: levothyroxine 50 mcg Tablet PO (07:47)
[2020-05-16 07:54] VITALS: BP 143/82; PULSE 64; RESP 18; TEMP 37.4; O2SAT 97
--- NOTE | 2020-05-16 09:44 | PM.PN ---
Subjective Subjective: Interval history: Patient denies any abdominal pain, nausea, vomiting, tolerating full liquid diet, keen to go home today, had multiple bowel movements Vitals/I&O/Wt Last Vital Signs Temp 99.3 F 05/16/20 07:54 Pulse 64 05/16/20 07:54 Resp 18 05/16/20 07:54 BP 143/82 05/16/20 07:54 Pulse Ox 97 05/16/20 07:54 05/15/20 05/16/20 05/16/20 22:59 06:59 14:59 Intake Total 1540 / 2200 120 / 120 Output Total 450 / 550 Balance 1540 / 1650 -450 / 1650 120 / 120 Physical Exam Narrative: EXAM NARRATIVE: Abdomen: Soft, nontender, nondistended Data : 05/13/20 04:46 05/13/20 04:46 A&P Assessment and plan (1) Small bowel obstruction: 64-year-old female status post ex lap for intussusception admitted with small bowel obstruction and constipation which has now resolved with conservative measures Discharge home on lactulose 15 cc p.o. twice daily to avoid constipation Follow-up 2 weeks to schedule an outpatient colonoscopy Status: Acute Attestations Medical Necessity Statement*: Small bowel obstruction, resolved, can go home today Coding Level of Care Code Acute Personnel Associate for Maurizio Toth Diagnoses Small bowel obstruction K56.609
[2020-05-16 12:00] VITALS: BP 161/82; PULSE 71; RESP 18; TEMP 37; O2SAT 99
[2020-05-16 15:55] VITALS: BP 143/80; PULSE 62; RESP 17; TEMP 36.7; O2SAT 98
--- NOTE | 2020-05-16 16:29 | PM.DCS ---
Discharge Providers Date of Admission: 05/11/20 00:42 Date of Discharge: May 16, 2020 Attending Provider at Admission: Saroj Randhawa Attending Provider at Discharge: No Lepe MD Consults: Surgery Primary Care Provider: Dr. Bobbi Stuart Diagnoses at Discharge Discharge Diagnosis (1) Small bowel obstruction: Status: Acute Permanent problem details: -resolving per clinical improvement, + BMs, improvement on imaging -continue bowel regimen -outpatient f/u with Dr. Bryant Other Information Additional DC diagnoses/information: -COPD, not oxygen dependent, no evidence of exacerbation -hx of peptic ulcer disease; on PPI -Hypothyroidism; continue levothyroxine Reason for Visit Reason for Visit: N/V - ULCER HX Hospital Course Hospital Course: Patient was admitted to the medical surgical floor and started on IV fluid hydration, kept n.p.o. and had NG tube placed in the ER secondary to evidence of partial small bowel obstruction on imaging. General surgery was consulted and recommended continued conservative management and initiation of bowel regimen. Symptomatically she has improved, with noted no further episodes of nausea, vomiting and diminished abdominal pain. She has had some bowel movements and is tolerating oral intake without difficulty. Follow-up imaging shows improvement as well. She has been cleared for discharge home today by Dr. Bryant with appropriate outpatient follow-up and continuation of bowel regimen. She will also need appropriate follow-up with her primary care provider within 1 week. She is advised to seek medical attention immediately should she have worsening symptoms. Physical Exam Const: COMMON NORMALS: no acute distress and patient oriented x3 GENERAL APPEARANCE: cooperative and comfortable NUTRITIONAL APPEARANCE: thin ORIENTATION/CONSCIOUSNESS: Yes awake HENMT: COMMON NORMALS: normocephalic, atraumatic, hearing grossly normal bilaterally and moist oral mucous membranes HEAD & SCALP: normocephalic and atraumatic Eye: COMMON NORMALS: Equal, round and reactive pupils present, EOMs intact bilaterally and conjunctivae normal CONJUNCTIVA: Yes conjunctivae normal PUPIL: Yes Equal, round and reactive pupils present Neck/C-Spine: COMMON NORMALS: full ROM GENERAL: Yes normal visual inspection and Yes trachea midline Resp: COMMON NORMALS: normal respiratory effort, No retractions, No use of accessory muscles and clear to auscultation bilaterally EFFORT & INSPECTION: Yes able to speak in complete sentences, Yes symmetric chest movement and No tachypneic AUSCULTATION: clear to auscultation bilaterally Cardio: COMMON NORMALS: regular rate, regular rhythm, S1 normal heart sound present, S2 normal heart sound present and No murmurs present (Cardio) RATE: regular rate RHYTHM: regular rhythm HEART SOUNDS: S1 normal heart sound present and S2 normal heart sound present GI: COMMON NORMALS: Normal to inspection, nondistended, normoactive bowel sounds present, Soft to palpation and non-tender PALPATION: Yes Soft to palpation Extremity: COMMON NORMALS: normal to inspection, full ROM and no clubbing, cyanosis or edema; negative for no pedal edema Neuro: COMMON NORMALS: patient oriented x3, moves all extremities, no focal motor deficits, no sensory deficits noted and gait normal Psych: COMMON NORMALS: mental status grossly normal, Normal thought process present, cooperative, normal affect and speech normal SPEECH: Yes normal speech THOUGHT PROCESS: Normal thought process present Skin: COMMON NORMALS: no rashes or lesions noted, no jaundice, no petechiae and no mottling GENERAL SKIN EXAM: no rashes or lesions noted Discharge Data Data Completed and Pending: Completed Studies During Hospitalization Category Date Time Status CT abdomen pelvis w con* [id number] Urge nt Cat Scan 05/10/20 22:44 Completed XR KUB [id number] Rout ine Exams 05/13/20 07:00 Completed XR KUB [id number] Rout ine Exams 05/14/20 07:00 Completed XR abdomen min 2V [id number] Routine Exams 05/15/20 06:00 Completed XR chest 1V scott ble [id number] Stat Exams 05/11/20 01:18 Completed Vitals: Last Vital Signs Temp 98.1 F 05/16/20 15:55 Pulse 62 05/16/20 15:55 Resp 17 05/16/20 15:55 BP 143/80 05/16/20 15:55 Pulse Ox 98 05/16/20 15:55 Discharge Plan Discharge Patient Disposition: Home Condition: Stable Prescriptions: New lactulose 10 gram/15 mL solution 15 ml PO BID Qty: 237 RF: 2 Continued cetirizine 10 mg tablet 10 mg PO DAILY RF: 0 Euthyrox 50 mcg tablet 50 mcg PO DAILY RF: 0 pantoprazole 40 mg tablet,delayed release (DR/EC) 40 mg PO DAILY RF: 0 montelukast 10 mg tablet 10 mg PO DAILY RF: 0 Vitamin D3 25 mcg (1,000 unit) Capsule 25 mcg PO DAILY RF: 0 Spiriva Respimat 1.25 mcg/actuation mist 2 puff INHALATION BID RF: 0 Discharge Orders: Discharge Order (Routine); Ordered 05/16/20 Ordered By: No Lepe Referrals: Bobbi Stuart MD [Staff Physician] - 4-7 days (Please call Monday to schedule a follow up appointment. Post hospital discharge follow up) Ton Bryatn MD [Physician] - 2 weeks (Will need outpatient colonoscopy Please call [facility] on Monday to schedule. [phone]) Discharge Diet: Advance as tolerated Discharge Activity: Resume usual activity Patient Instructions: Constipation - Adult, Lactulose (By mouth) Discharge Attestations Time Spent in Discharge Care*: greater than 30 min Specific Discharge Activities: Specific discharge activities: educating patient, discussing with human services case manager/social workers/dc planners, documenting/other paperwork and evaluating patient/reviewing data Status at Discharge: Cognitive status at discharge: cognitively intact, Behavioral status at discharge: cooperative, Functional status at discharge: independent ambulation Overall status at discharge: patient is progressing back to baseline Quality Metrics Clinical Quality Measures During this hospital stay, did patient experience: None Coding Level of Care Code Acute Starting Gate Driver for Chg Fwd Exam Comprehensive Diagnoses Small bowel obstruction K56.609
[2020-05-16 17:55] VITALS: BP 143/80; PULSE 62; RESP 17; TEMP 36.7; O2SAT 98
== END 2020-05-16 17:57 | disposition home or self-care (01) | DRG 390 ==
LOC: ER 05-11 00:40 → CSU 05-11 01:19 → MEDSURG 05-13 06:51
PROVIDERS: Emergency Medicine; Admitting Provider Hospitalist; Visit Provider Family Medicine
DX: K56.600 Partial intestinal obstruction, unspecified as to cause (principal); K27.9 Peptic ulcer, site unspecified, unspecified as acute or chronic, without hemorrhage or perforation; K59.00 Constipation, unspecified; E03.9 Hypothyroidism, unspecified; J44.9 Chronic obstructive pulmonary disease, unspecified
CPT/HCPCS: 12345; 36415; 71045; 74018; 74019; 74177; 80053; 80307; 83605; 83690; 85025; 94640; 96372; 96375; 99283; C9113; J1650; J2270; J2405; J7030; Q9967

== ENCOUNTER 2020-08-13 14:56 | Outpatient (CLI) | payer BC, SELFPAY ==
--- NOTE | 2020-08-13 15:08 | MM_ITS ---
WS: [id number] BILATERAL SCREENING DIGITAL MAMMOGRAM WITH CAD HISTORY: SCREEN COMPARISON: 06/13/2019 and 02/08/2016 Bilateral CC and MLO views submitted. Computer aided detection analyzed. Breast composition: There are scattered areas of fibroglandular density. No suspicious masses, microc alcifications or architectural distortion. Benign calcifications in each breast. MM/[place] [id number] IMPRESSION: BI-RADS: 2-Benign FOLLOW UP: 1 Year Follow-up
== END 2020-08-13 14:57 | disposition home or self-care (01) ==
LOC: RADSHAW 15:02
PROVIDERS: PCP Family Medicine; Visit Provider Nurse Practitioner Family
DX: Z12.31 Encounter for screening mammogram for malignant neoplasm of breast (principal)
CPT/HCPCS: 77067

== ENCOUNTER 2021-04-05 07:57 | Outpatient (CLI) | payer MEDICARE, BC, SELFPAY ==
--- NOTE | 2021-04-05 08:06 | US_ITS ---
WS: [id number] RIGHT UPPER QUADRANT ULTRASOUND HISTORY: ABD PAIN AND BURNING COMPARISON: None available. Liver: 12.8 cm in length. Normal size liver. No bile duct dilatation or mass. Gallbladder: Normally distended gallbladder with no stones or wall thickening. CBD: 0.3 cm Pancreas: Normal size and echogenicity. Right kidney: 7.5 cm in length. Normal size and echogenicity. No hydronephrosis or mass. Aorta and IVC: Unremarkable abdominal aorta and IVC. No ascites. US/US abdomen limited [id number] IMPRESSION: Normal RIGHT upper quadrant ultrasound.
== END 2021-04-05 07:58 | disposition home or self-care (01) ==
LOC: RAD 08:04
PROVIDERS: PCP Family Medicine; Visit Provider Family Medicine
DX: R10.9 Unspecified abdominal pain (principal)
CPT/HCPCS: 76705

== ENCOUNTER → 2021-06-17 14:39 | Outpatient (BNVA) | payer MEDICARE, BC, SELFPAY | PROVIDERS: PCP Family Medicine; Visit Provider Surgery | DX: Z20.822 Contact with and (suspected) exposure to COVID-19 (principal) | CPT/HCPCS: 87635 ==

== ENCOUNTER 2021-06-24 08:46 | Day surgery (SDC) | payer MEDICARE, BC, SELFPAY ==
[2021-06-22 09:58] VITALS: BMI 19.2
[2021-06-24 09:14] VITALS: BP 151/73; PULSE 65; RESP 20; TEMP 36.8; O2SAT 99
--- NOTE | 2021-06-24 09:19 | ANES.PREANE2 ---
Pre-Anesthetic Assessment Pre-Anesthetic Assessment: Height/Weight: Height 1.57 m Weight 47.627 kg Temp Pulse Resp BP Pulse Ox 98.2 F 65 20 H 151/73 99 06/24/21 09:14 06/24/21 09:14 06/24/21 09:14 06/24/21 09:14 06/24/21 09:14 Preop Diagnosis: diagnostic Proposed Procedure: Operation Date: 06/24/21 09:30 Proposed Procedures p Colonoscopy 06169 R10.9(Not Applicable) - Ton Bryant MD Was Beta Zenaida taken within 24 hours: N/A Was Clonidine taken within 24 hours: N/A Last intake: Intake Last Liquid Date 06/23/21 Last Liquid Time 22:00 Last Solid Date 06/22/21 Last Solid Time 21:00 Social: Social History: No alcohol and No tobacco Exam: Pre-Anes Outpt Exam: alert, oriented x 3 and regular rate & rhythm Airway: Submandibular: WNL Cervical ROM: WNL MP: 2 Dentition: False Pulmonary: Pulmonary: COPD GI: GI: GERD Metabolic: Metabolic: Thyroid Anesthetic Plan: ASA status: 2 Anesthesia: MAC Risk of > 500 ml blood loss (7ml/kg in children): No PFSH Anesthesia PFSH: Medical History COPD (chronic obstructive pulmonary disease) GERD (gastroesophageal reflux disease) Hypothyroidism Intussusception Small bowel obstruction -resolving per clinical improvement, + BMs, improvement on imaging -continue bowel regimen -outpatient f/u with Dr. Bryant Surgical History H/O esophagogastroduodenoscopy S/P small bowel resection Status post colonoscopy Social History Smoking and tobacco status: never smoked Data Anesthesia Cardiac Studies: No Data to Display
[2021-06-24] MEDS: sodium chloride 0.9% 1,000 ML 30 ML IV (09:20)
--- NOTE | 2021-06-24 09:42 | W.PM.OPSFHP ---
Same Day Surgery H&P Indication for Procedure/HPI DATE OF PROCEDURE: June 24, 2021 CHIEF COMPLAINT/INDICATIONFOR SURGICAL PROCEDURE: constipation PREOP DIAGNOSIS: diagnostic PLANNED PROCEDRUE: Operation Date: 06/24/21 09:30 Proposed Procedures p Colonoscopy 81185 R10.9(Not Applicable) - Ton Bryant MD Medications/Allergies* Home Medications Medication Instructions Recorded Confirmed Type Spiriva Respimat 2 puff INHALATION BID 05/11/20 06/24/21 History cetirizine 10 mg PO DAILY 05/11/20 06/24/21 History cholecalciferol (vitamin D3) 25 mcg PO DAILY 05/11/20 06/24/21 History [Vitamin D3] montelukast 10 mg PO DAILY 05/11/20 06/24/21 History pantoprazole 40 mg PO DAILY 05/11/20 06/24/21 History albuterol sulfate 90 mcg/actuation 2 puff INHALATION Q6H PRN 09/28/20 06/24/21 History aerosol inhaler budesonide-formoterol HFA 160 2 puff INHALATION BID 09/28/20 06/24/21 History mcg-4.5 mcg/actuation aerosol inhaler levothyroxine 50 mcg capsule 50 mcg PO DAILY 09/28/20 06/24/21 History tiotropium bromide 1.25 2 puff INHALATION DAILY 09/28/20 06/24/21 History mcg/actuation mist for inhalation hydrocodone 5 mg-acetaminophen 325 1 tab PO Q6H PRN 05/18/21 06/24/21 History mg tablet ondansetron 4 mg disintegrating 4 mg PO Q6H PRN 05/18/21 06/24/21 History tablet polyethylene glycol 3350 [Miralax] 17 g PO BID 06/22/21 06/24/21 History Allergies/Adverse Reactions Allergy/AdvReac Type Severity Reaction Status Date / Time bacitracin Allergy rash Verified 06/24/21 09:13 [From Neosporin ([id number])] neomycin Allergy rash Verified 06/24/21 09:13 [From Neosporin ([id number])] polymyxin B Allergy rash Verified 06/24/21 09:13 [From Neosporin ([id number])] Current Medications: Generic Name Dose Route Start Last Admin Trade Name Freq PRN Reason Stop Dose Admin Sodium Chloride 1,000 mls @ 30 mls/hr 06/24/21 09:00 06/24/21 09:20 Sodium Chloride 0.9% IV 06/25/21 08:59 30 mls/hr .Q24H FÉLIX Administration Pertinent History/Comorbid Conditions* Medical History (Updated 05/17/20 @ 00:00 by ) COPD (chronic obstructive pulmonary disease) GERD (gastroesophageal reflux disease) Hypothyroidism Intussusception Small bowel obstruction -resolving per clinical improvement, + BMs, improvement on imaging -continue bowel regimen -outpatient f/u with Dr. Bryant Surgical History (Updated 05/14/20 @ 17:13 by Ton Bryant MD) H/O esophagogastroduodenoscopy S/P small bowel resection Status post colonoscopy Social History Smoking and tobacco status: never smoked Pertinent Exam Findings alert, oriented x 3 and regular rate & rhythm Recommendations Surgery/Procedure today Coding Level of Care Code Acute [employer] Consult[employer] Manager for Maurizio Toth
[2021-06-24 10:13] VITALS: BP 114/62; PULSE 61; RESP 17; TEMP 36.1; O2SAT 98
[2021-06-24 10:28] VITALS: BP 154/52; PULSE 66; RESP 18; O2SAT 99
--- NOTE | 2021-06-24 10:43 | ANE.PACU2 ---
Inpatient post-anesthesia follow up: Airway intact: Yes Vital signs: Temperature 97 F Pulse Rate 66 Respiratory Rate 18 Blood Pressure 154/52 Pulse Oximetry 99 Oxygen Delivery Me thod Room Air Oxygen Flow Rate 2 Fraction of Inspir ed Oxygen Hydration adequate: Yes Nausea and vomiting: No
[2021-06-24] MEDS: alum-mag-hydroxide-sime 30 mL UDC PO (11:25)
--- NOTE | 2021-06-24 11:47 | PC.NURSE ---
1112 inserted rectal tube, produced significant amount of flatus. Pt took her home medication of hydrocodone 5mg PO, administered Maalox 30 ml as ordered, per Dr. Bryant. Pt states pain has decreased and epigastric pain is not uncommon for her, feels well enough to go home.
--- NOTE | 2021-06-24 14:09 | ANE.PACU2 ---
Inpatient post-anesthesia follow up: Airway intact: Yes Vital signs: Temperature 97 F Pulse Rate 66 Respiratory Rate 18 Blood Pressure 154/52 Pulse Oximetry 99 Oxygen Delivery Me thod Room Air Oxygen Flow Rate 2 Fraction of Inspir ed Oxygen Hydration adequate: Yes Nausea and vomiting: No Pain level: 1 Mental status: Baseline
== END 2021-06-24 11:57 | disposition home or self-care (01) ==
PROVIDERS: PCP Family Medicine; Visit Provider Surgery
PROC: 0DJD8ZZ Inspection of Lower Intestinal Tract, Via Natural or Artificial Opening Endoscopic (ICD-10-PCS; CPT 45378; principal; 2021-06-24 09:30)
DX: R10.9 Unspecified abdominal pain (principal); K59.00 Constipation, unspecified; K57.30 Diverticulosis of large intestine without perforation or abscess without bleeding; K63.5 Polyp of colon; J44.9 Chronic obstructive pulmonary disease, unspecified; K21.9 Gastro-esophageal reflux disease without esophagitis; E03.9 Hypothyroidism, unspecified
CPT/HCPCS: 45380; 88305; 96360; J2704; J7030

== ENCOUNTER 2021-07-05 15:15 | Outpatient (CLI) | payer MEDICARE, BC, SELFPAY ==
--- NOTE | 2021-07-05 15:20 | XR_ITS ---
WS: [id number] Acute abdomen series, 07/05/2021 Clinical Data: R10.9 - Unspecified abdominal pain Comparison: Flat and upright abdomen, 05/15/2020 Findings: In the chest there are no nodules, masses or effusions. The heart is normal. The pulmonary vascularity is not increased. The aortic arch shows mild tortuosity. No free air is seen beneath the diaphragms. No abnormal intra-abdominal masses or calcifications are seen. There is moderate amount of fecal material throughout the colon. XR/XR acute abdomen series [id number] Impression: 1. Atherosclerosis. 2. Moderate amount of fecal material in the colon.
[2021-07-05 15:57] LABS: Basophils % 0.3 %; Eosinophils # 0.1 10^3/uL (0.0-0.8); Eosinophils % 1.5 %; Hematocrit 41.4 % (37.0-47.0); Hemoglobin 13.9 g/dL (11.5-15.3); Lymphocytes # 2.2 10^3/uL (0.8-4.8); Lymphocytes % 29.4 %; Mean Corpuscular HGB Conc 33.6 g/dL (30.0-36.0); Mean Corpuscular Hemoglobin 30.5 pg (28.0-34.0); Mean Corpuscular Volume 90.8 fl (81-99); Mean Platelet Volume 10.8 fL (7.4-10.4); Monocytes # 0.5 10^3/uL (0.2-0.9); Neutrophils # 4.55 10^3/uL (1.8-7.7); Neutrophils % 61.7 %; Nucleated Red Blood Cells % 0 %; Platelet Count 242 10^3/cmm (130-400); Red Blood Count 4.56 10^6/uL (4.1-5.3); Red Cell Distribution Width 11.9 % (12.1-15.1); White Blood Count 7.4 10^3/uL (4.0-10.0)
[2021-07-05 16:06] LABS: Anion Gap 14.8 (5-19); Blood Urea Nitrogen 17 mg/dL (8-23); Calcium 8.7 mg/dL (8.5-10.5); Carbon Dioxide 26 mmol/L (22-29); Chloride 105 mmol/L (98-107); Glomerular Filtration Rate 62.8 mL/min (90-130); Glucose 87 mg/dL (65-115); Osmolality Calculated 295 mOsm/kg (285-295); Potassium 3.8 mmol/L (3.5-5.1); Sodium 142 mmol/L (136-145)
== END 2021-07-05 15:16 | disposition home or self-care (01) ==
LOC: RAD 15:18
PROVIDERS: PCP Family Medicine; Visit Provider Surgery
DX: R10.9 Unspecified abdominal pain (principal); I70.90 Unspecified atherosclerosis
CPT/HCPCS: 74022; 80048; 85025

== ENCOUNTER 2022-05-07 03:52 | Emergency (ER) | payer MEDICARE, BC, SELFPAY ==
[2022-05-07 04:00] VITALS: BP 128/75; PULSE 92; RESP 16; TEMP 37.5; O2SAT 96
[2022-05-07 04:05] VITALS: RESP 16; TEMP 37.9; O2SAT 98
--- NOTE | 2022-05-07 04:26 | XRR_ITS ---
PROCEDURE INFORMATION: Exam: XR Chest Exam date and time: 05/07/2022 4:39 AM Age: 66 years old Clinical indication: Fever TECHNIQUE: Imaging protocol: Radiologic exam of the chest. Views: 1 view. COMPARISON: CR XR chest 1V portable [id number] 05/11/2020 1:30 AM FINDINGS: Lungs: Normal lung volumes. Unchanged mild asymmetric right upper lung zone pleuroparenchymal scarring is seen. No confluent interstitial or airspace opacities. Some unchanged emphysematous changes are seen in the upper lobes. Pleural spaces: No pleural effusion. No pneumothorax. Heart/Mediastinum: Normal heart size. Normal mediastinal contour. Midline trachea. Bones/joints: No acute abnormalities. XR/XR chest 1V portable [id number] IMPRESSION: No confluent infiltrates in the lungs.
--- NOTE | 2022-05-07 04:26 | CTR_ITS ---
PROCEDURE INFORMATION: Exam: CT Abdomen And Pelvis With Contrast Exam date and time: 05/07/2022 5:41 AM Age: 66 years old Clinical indication: Fever; Abdominal pain; Generalized; Prior surgery; Surgery date: 6+ months; Surgery type: Small bowel resection; Additional info: Abd pain, fever, vomiting TECHNIQUE: Imaging protocol: Computed tomography of the abdomen and pelvis with contrast. Radiation optimization: All CT scans at this facility use at least one of these dose optimization techniques: automated exposure control; mA and/or kV adjustment per patient size (includes targeted exams where dose is matched to clinical indication); or iterative reconstruction. Contrast material: OMNI 350; Contrast volume: 100 ml; Contrast route: INTRAVENOUS (IV); COMPARISON: CT abdomen pelvis w con* [id number] 05/10/2020 11:33 PM RADIATION DOSE METRICS: Total DLP (mGy-cm): 312.7 FINDINGS: Lungs: Visualized inferior right middle lobe small region of consolidation is seen with some bronchiectasis. This could represent sequela of prior pneumonia or atypical mycobacterial infection. Chest CT may be performed for complete assessment. Liver: Normal enhancement. No mass. Gallbladder and bile ducts: Mildly distended gallbladder. No stones. No wall thickening. No biliary ductal dilatation. Pancreas: Normal contour and enhancement. No ductal dilation. Spleen: Normal enhancement. No splenomegaly. Adrenal glands: Normal contour. No mass. Kidneys and ureters: Multiple scattered bilateral renal 2-4 mm cysts are seen. No further follow-up is necessary per ACR recommendations. No contour deforming renal masses. No hydronephrosis or ureterectasis. Stomach and bowel: The noncontrast opacified stomach appears unremarkable. The noncontrast opacified small bowel loops appear unremarkable. Some surgical clips are seen adjacent to the terminal ileum. Recommend correlation with surgical history. The noncontrast opacified loops of colon in the abdomen and pelvis show moderate gas and fecal material, suggestive of constipation. The lack of orally administered contrast material limits assessment. Appendix: Some surgical clips are seen in the cecal region. Recommend correlation with clinical history. This may be related to prior appendectomy. Intraperitoneal space: No abdominal ascites. No free air. Some benign phleboliths seen in the pelvis. Vasculature: No abdominal aortic aneurysm. Inferior vena cava and portal vein appear unremarkable. Lymph nodes: No enlarged lymph nodes. Urinary bladder: No bladder debris. No wall thickening. Reproductive: Mildly heterogeneous attenuation of the uterus is seen. Punctate uterine fundus calcification is seen. This may be related to a leiomyomatous uterus. Sonography may be performed, if there is further clinical concern. Bones/joints: No acute osseous abnormality seen. Soft tissues: Unremarkable. CT/CT abdomen pelvis w con* [id number] IMPRESSION: 1. No acute abnormality seen on the abdomen and pelvis CT. 2. Moderate constipation. 3. Visualized inferior right middle lobe small region of consolidation with some bronchiectasis. This could represent sequela of prior pneumonia or atypical mycobacterial infection. Chest CT may be performed for complete assessment. COMMENTS: Consistent with the [employer]'s Incidental Findings Committee white paper (J Am Porfirio Radiol 2018): Any incidental renal lesion less than 1 cm or classified as too small to characterize, or any incidental cystic renal lesion characterized as simple-appearing, is likely benign. No follow-up imaging is recommended for these lesions per consensus recommendations based on imaging criteria.
[2022-05-07] MEDS: ketorolac 30 mg/mL INJ 15 MG IVP (04:43)
[2022-05-07] MEDS: morphine 4 mg/mL SDV 1 mL 2 MG IVP (04:43)
[2022-05-07] MEDS: sodium chloride 0.9% 1,000 ML 999 ML IV (04:43)
[2022-05-07] MEDS: ondansetron 2 mg/ML SDV 2 mL 4 MG IVP (04:43)
--- NOTE | 2022-05-07 04:54 | W.ED.FEVER ---
Documented by User: Tomasz Oconnor DO 05/07/22 18:14 HPI - Fever General: Chief Complaint: Fever Stated Complaint: Fever Time Seen by Provider: 05/07/22 04:10 Source: patient Limitations: no limitations History of Present Illness: 66-year-old female with a history of asthma and diverticulitis. She presents with a fever body aches, nausea and vomiting that started last night. Seem to worsen over this morning. She took Tylenol at home with improvement in the temperature. It was over 102 at home. She is not has a significant cough or shortness of breath. She does have a history of asthma as above. 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 MD elicited complaint: fever Pertinent past history: other Onset (ago): hour(s) Context: sick contacts Exacerbating factors: nothing Relieving factors: acetaminophen Associated symptoms: Reports abdominal pain, chills, headache(s), nausea and vomiting; Deny flank pain, chest pain, confusion, cough, diarrhea, dysuria, nasal congestion, sinus pain or sore throat Treatments prior to arrival fever: acetaminophen Review of Systems Const: Reports: fever(s), chills and body aches Eyes: Denies: change in vision ENMT: Denies: throat pain, nasal congestion or sinus pain Card: Denies: chest pain Resp: Denies: dyspnea, productive cough or non-productive cough GI: Reports: abdominal pain, nausea and vomiting; Denies: diarrhea : Denies: flank pain or dysuria Musc: Denies: neck pain or muscle cramps Skin/Breast: Denies: rash Neuro: Reports: headache(s); Denies: confusion PFSH ED PFSH: Medical History COPD (chronic obstructive pulmonary disease) GERD (gastroesophageal reflux disease) Hypothyroidism Intussusception Small bowel obstruction -resolving per clinical improvement, + BMs, improvement on imaging -continue bowel regimen -outpatient f/u with Dr. Bryant Surgical History H/O esophagogastroduodenoscopy S/P small bowel resection Status post colonoscopy Status post colonoscopy (06/24/21) diverticulosis, polyp Social History Smoking and tobacco status: never smoked Physical Exam HENMT: COMMON NORMALS: normocephalic, atraumatic and Normal external nose present HEAD & SCALP: normocephalic and atraumatic FACE & SINUS: normal facial exam and face symmetric NOSE: Normal external nose present Eye: COMMON NORMALS: Equal, round and reactive pupils present and EOMs intact bilaterally PUPIL: Yes Equal, round and reactive pupils present Neck/C-Spine: COMMON NORMALS: full ROM and no meningeal signs GENERAL: Yes trachea midline Chest: CHEST: Yes Symmetrical chest wall rise Resp: COMMON NORMALS: normal respiratory effort, No use of accessory muscles and clear to auscultation bilaterally AUSCULTATION: clear to auscultation bilaterally Cardio: COMMON NORMALS: regular rate and regular rhythm RATE: regular rate RHYTHM: regular rhythm GI: COMMON NORMALS: Normal to inspection, nondistended, normoactive bowel sounds present and Soft to palpation PALPATION: Yes Soft to palpation and Yes Tenderness to palpation present (GI) (mild) Details: LLQ : COMMON NORMALS: Yes no CVA tenderness BLADDER/KIDNEY EXAM: Yes no CVA tenderness Back/Pelvis: COMMON NORMALS: no CVA tenderness Extremity: COMMON NORMALS: no pedal edema Neuro: JERICA COMA SCALE: document GCS findings Jerica coma scale eye opening: Spontaneous [place] coma scale verbal response: Orientated Jerica coma scale motor response: Obey commands Jerica coma scale total score: 15 MENINGEAL SIGNS: Yes no meningeal signs Course Vital Signs: Vital signs: Vital Signs Temperature 100.2 F H 05/07/22 04:05 Pulse Rate 85 05/07/22 07:59 Respiratory Rate 16 05/07/22 07:59 Blood Pressure 95/58 05/07/22 07:59 Pulse Oximetry 95 05/07/22 07:59 Oxygen Delivery Me thod 05/07/22 05:35 MDM - Fever Medical Decision Making 66-year-old female here with a fever at home. She has had body aches. Mild belly pain and a couple of episodes of vomiting. No significant shortness of breath or cough. CBC is normal. Creatinine is 1.1. CRP is normal. Chest x-ray shows no infiltrate. CT of the belly is pending. She will be checked out to the oncoming physician at shift change pending CT results. Lab Data : 05/07/22 04:53 05/07/22 04:53 Radiology Impressions Abdomen/Pelvis CT 05/07/22 04:26 IMPRESSION: 1. No acute abnormality seen on the abdomen and pelvis CT. 2. Moderate constipation. 3. Visualized inferior right middle lobe small region of consolidation with some bronchiectasis. This could represent sequela of prior pneumonia or atypical mycobacterial infection. Chest CT may be performed for complete assessment. COMMENTS: Consistent with the [employer]'s Incidental Findings Committee white paper (J Am Porfirio Radiol 2018): Any incidental renal lesion less than 1 cm or classified as too small to characterize, or any incidental cystic renal lesion characterized as simple-appearing, is likely benign. No follow-up imaging is recommended for these lesions per consensus recommendations based on imaging criteria. Chest X-Ray 05/07/22 04:26 IMPRESSION: No confluent infiltrates in the lungs. Laboratory Results WBC 7.4 10^3/uL (4.0-10.0) 05/07/22 04:53 RBC 4.50 10^6/uL (4.1-5.3) 05/07/22 04:53 Hgb 13.6 g/dL (11.5-15.3) 05/07/22 04:53 Hct 40.8 % (37.0-47.0) 05/07/22 04:53 MCV 90.7 fl (81-99) 05/07/22 04:53 MCH 30.2 pg (28.0-34.0) 05/07/22 04:53 MCHC 33.3 g/dL (30.0-36.0) 05/07/22 04:53 RDW 12.3 % (12.1-15.1) 05/07/22 04:53 Plt Count 175 10^3/cmm (130-400) 05/07/22 04:53 MPV 10.5 fL (7.4-10.4) H 05/07/22 04:53 Neut % (Auto) 79.0 % 05/07/22 04:53 Lymph % (Auto) 10.0 % 05/07/22 04:53 [place] % (Auto) 9.9 % 05/07/22 04:53 Eos % (Auto) 0.3 % 05/07/22 04:53 Baso % (Auto) 0.3 % 05/07/22 04:53 Neut # (Auto) 5.85 10^3/uL (1.8-7.7) 05/07/22 04:53 Lymph # (Auto) 0.7 10^3/uL (0.8-4.8) L 05/07/22 04:53 [place] # (Auto) 0.7 10^3/uL (0.2-0.9) 05/07/22 04:53 Eos # (Auto) 0.0 10^3/uL (0.0-0.8) 05/07/22 04:53 Baso # (Auto) 0.0 10^3/uL (0.0-0.1) 05/07/22 04:53 Nucleated RBC % (auto) 0 % 05/07/22 04:53 Nucleated RBCs # 0.0 /100WBC 05/07/22 04:53 Sodium 131 mmol/L (136-145) L 05/07/22 04:53 Potassium 4.0 mmol/L (3.5-5.1) 05/07/22 04:53 Chloride 97 mmol/L (98-107) L 05/07/22 04:53 Carbon Dioxide 25 mmol/L (22-29) 05/07/22 04:53 Anion Gap 13.0 (5-19) 05/07/22 04:53 BUN 12 mg/dL (8-23) 05/07/22 04:53 Creatinine 1.1 mg/dL (0.5-0.9) H 05/07/22 04:53 GFR Calculation 49.7 mL/min (90-130) L 05/07/22 04:53 Glucose 99 mg/dL (65-115) 05/07/22 04:53 Calculated Osmolality 272 mOsm/kg (285-295) L 05/07/22 04:53 Lactate 1.2 mmol/L (0.5-2.2) 05/07/22 04:53 Calcium 9.3 mg/dL (8.5-10.5) 05/07/22 04:53 Total Bilirubin 0.3 mg/dL (0.15-1.2) 05/07/22 04:53 AST 23 U/L (0-32) 05/07/22 04:53 ALT 18 U/L (0-33) 05/07/22 04:53 Alkaline Phosphatase 94 U/L (35-105) 05/07/22 04:53 C-Reactive Protein 3.0 mg/L (0.0-4.9) 05/07/22 04:53 Total Protein 7.5 g/dL (6.6-8.7) 05/07/22 04:53 Albumin 4.0 g/dL (3.5-5.2) 05/07/22 04:53 Globulin 3.5 g/dL (1.3-4.6) 05/07/22 04:53 Lipase 34 U/L (13-60) 05/07/22 04:53 Procalcitonin 0.05 ng/mL (0-0.5) 05/07/22 04:53 Urine Color Straw (Yellow) 05/07/22 06:25 Urine Appearance Clear (CLEAR) 05/07/22 06:25 Urine pH 7 (5-7) 05/07/22 06:25 Ur Specific [place] 1.005 (1.005-1.030) 05/07/22 06:25 Urine Protein Trace (Negative) 05/07/22 06:25 Urine Glucose (UA) Norm (Normal) 05/07/22 06:25 Urine Ketones 1+ (Negative) H 05/07/22 06:25 Urine Blood Trace (Negative) H 05/07/22 06:25 Urine Nitrate Negative (Negative) 05/07/22 06:25 Urine Bilirubin Neg (Negative) 05/07/22 06:25 Urine Urobilinogen Norm mg/dL (Negative) 05/07/22 06:25 Ur Leukocyte Esterase Negative (Negative) 05/07/22 06:25 Urine RBC 5-10 /hpf (0-2) H 05/07/22 06:25 Urine WBC None /hpf (0-5) 05/07/22 06:25 Ur Squamous Epith Cells None /hpf (0-5) 05/07/22 06:25 Amorphous Sediment Not Reportable 05/07/22 06:25 Urine Bacteria Trace /hpf (NONE) 05/07/22 06:25 Influenza Type A Ag negative (Negative) 05/07/22 04:30 Influenza Type B Ag negative (Negative) 05/07/22 04:30 SARS-CoV-2 Ag (Rapid) negative (Negative) 05/07/22 04:30 Discharge Plan Discharge Patient Disposition: Home Clinical Impression: Primary atypical pneumonia, Dehydration, mild, Nausea & vomiting Condition: Stable Prescriptions: New azithromycin 250 mg tablet See Rx Instructions .ROUTE .COMPLEX Qty: 6 0RF Rx Instructions: For 250 mg dose pack: take 500 mg today (day 1), then 250 mg for 4 days (days 2-5) ondansetron 4 mg tablet,disintegrating 4 mg PO Q6H PRN (Reason: nausea and vomiting) Qty: 20 0RF No Action budesonide-formoterol [Symbicort] 160-4.5 mcg/actuation HFA aerosol inhaler 2 puff inhalation BID Spiriva Respimat 1.25 mcg/actuation mist 2 puff inhalation DAILY albuterol sulfate [Ventolin HFA] 90 mcg/actuation HFA aerosol inhaler 2 puff inhalation Q6H PRN (Reason: Shortness Of Breath) levothyroxine 50 mcg capsule 50 mcg PO DAILY ondansetron 4 mg tablet,disintegrating 4 mg PO Q6H PRN (Reason: Nausea) hydrocodone-acetaminophen 5-325 mg tablet 1 tab PO Q6H PRN (Reason: Pain) polyethylene glycol 3350 [Miralax] 17 gram/dose Powder 17 g PO BID cetirizine 10 mg tablet 10 mg PO DAILY pantoprazole 40 mg tablet,delayed release (DR/EC) 40 mg PO DAILY montelukast 10 mg tablet 10 mg PO DAILY cholecalciferol (vitamin D3) [Vitamin D3] 25 mcg (1,000 unit) Capsule 25 mcg PO DAILY Spiriva Respimat 1.25 mcg/actuation mist 2 puff INHALATION BID Discharge Orders: Discharge ED (Routine); Ordered 05/07/22 Ordered By: Ivan Ramirez Referrals: Bobbi Stuart MD [Primary Care Provider] - Discharge Diet: Advance as tolerated Discharge Activity: Increase activity as tolerated Patient Instructions: Clear Liquid Diet (ED), Acute Nausea and Vomiting (DC), Pneumonia (ED), Opioid Safety, Pain Management Activity Restrictions/Additional Instructions: Follow-up with your primary care provider in towards the middle of next week for recheck of your symptoms Sign Out Sign Out Data: Patient Sign Out occurred on 05/07/22 at 06:06. Patient's care was discussed, and care was transferred from to Ivan Ramirez DO. Coding Level of Care Code ED Health Professional for Chg Fwd Exam Comprehensive Documented by User: Ivan Ramirez DO 05/07/22 08:07 HPI - Fever General: Chief Complaint: Fever Stated Complaint: Fever Time Seen by Provider: 05/07/22 04:10 PFSH ED PFSH: Medical History COPD (chronic obstructive pulmonary disease) GERD (gastroesophageal reflux disease) Hypothyroidism Intussusception Small bowel obstruction -resolving per clinical improvement, + BMs, improvement on imaging -continue bowel regimen -outpatient f/u with Dr. Bryant Surgical History H/O esophagogastroduodenoscopy S/P small bowel resection Status post colonoscopy Status post colonoscopy (06/24/21) diverticulosis, polyp Social History Smoking and tobacco status: never smoked Physical Exam Neuro: JERICA COMA SCALE: document GCS findings Jerica coma scale total score: 15 Course Vital Signs: Vital signs: Vital Signs Temperature 100.2 F H 05/07/22 04:05 Pulse Rate 85 05/07/22 07:59 Respiratory Rate 16 05/07/22 07:59 Blood Pressure 95/58 05/07/22 07:59 Pulse Oximetry 95 05/07/22 07:59 Oxygen Delivery Me thod 05/07/22 05:35 MDM - Fever Medical Decision Making 66-year-old female here with a fever at home. She has had body aches. Mild belly pain and a couple of episodes of vomiting. No significant shortness of breath or cough. CBC is normal. Creatinine is 1.1. CRP is normal. Chest x-ray shows no infiltrate. CT of the belly is pending. She will be checked out to the oncoming physician at shift change pending CT results. Patient CT results showed no acute intra-abdominal abnormality. She did have questionable atypical infection on visualized portion of chest. Patient will be started on azithromycin since she does feel ill. Patient was mildly dehydrated was given IV fluids. Patient also be discharged home with Zofran for her nausea. Patient stable upon discharge. She should follow with her primary care provider in a couple days for recheck of her symptoms Lab Data : 05/07/22 04:53 05/07/22 04:53 Radiology Impressions Abdomen/Pelvis CT 05/07/22 04:26 IMPRESSION: 1. No acute abnormality seen on the abdomen and pelvis CT. 2. Moderate constipation. 3. Visualized inferior right middle lobe small region of consolidation with some bronchiectasis. This could represent sequela of prior pneumonia or atypical mycobacterial infection. Chest CT may be performed for complete assessment. COMMENTS: Consistent with the [employer]'s Incidental Findings Committee white paper (J Am Porfirio Radiol 2018): Any incidental renal lesion less than 1 cm or classified as too small to characterize, or any incidental cystic renal lesion characterized as simple-appearing, is likely benign. No follow-up imaging is recommended for these lesions per consensus recommendations based on imaging criteria. Chest X-Ray 05/07/22 04:26 IMPRESSION: No confluent infiltrates in the lungs. Laboratory Results WBC 7.4 10^3/uL (4.0-10.0) 05/07/22 04:53 RBC 4.50 10^6/uL (4.1-5.3) 05/07/22 04:53 Hgb 13.6 g/dL (11.5-15.3) 05/07/22 04:53 Hct 40.8 % (37.0-47.0) 05/07/22 04:53 MCV 90.7 fl (81-99) 05/07/22 04:53 MCH 30.2 pg (28.0-34.0) 05/07/22 04:53 MCHC 33.3 g/dL (30.0-36.0) 05/07/22 04:53 RDW 12.3 % (12.1-15.1) 05/07/22 04:53 Plt Count 175 10^3/cmm (130-400) 05/07/22 04:53 MPV 10.5 fL (7.4-10.4) H 05/07/22 04:53 Neut % (Auto) 79.0 % 05/07/22 04:53 Lymph % (Auto) 10.0 % 05/07/22 04:53 [place] % (Auto) 9.9 % 05/07/22 04:53 Eos % (Auto) 0.3 % 05/07/22 04:53 Baso % (Auto) 0.3 % 05/07/22 04:53 Neut # (Auto) 5.85 10^3/uL (1.8-7.7) 05/07/22 04:53 Lymph # (Auto) 0.7 10^3/uL (0.8-4.8) L 05/07/22 04:53 [place] # (Auto) 0.7 10^3/uL (0.2-0.9) 05/07/22 04:53 Eos # (Auto) 0.0 10^3/uL (0.0-0.8) 05/07/22 04:53 Baso # (Auto) 0.0 10^3/uL (0.0-0.1) 05/07/22 04:53 Nucleated RBC % (auto) 0 % 05/07/22 04:53 Nucleated RBCs # 0.0 /100WBC 05/07/22 04:53 Sodium 131 mmol/L (136-145) L 05/07/22 04:53 Potassium 4.0 mmol/L (3.5-5.1) 05/07/22 04:53 Chloride 97 mmol/L (98-107) L 05/07/22 04:53 Carbon Dioxide 25 mmol/L (22-29) 05/07/22 04:53 Anion Gap 13.0 (5-19) 05/07/22 04:53 BUN 12 mg/dL (8-23) 05/07/22 04:53 Creatinine 1.1 mg/dL (0.5-0.9) H 05/07/22 04:53 GFR Calculation 49.7 mL/min (90-130) L 05/07/22 04:53 Glucose 99 mg/dL (65-115) 05/07/22 04:53 Calculated Osmolality 272 mOsm/kg (285-295) L 05/07/22 04:53 Lactate 1.2 mmol/L (0.5-2.2) 05/07/22 04:53 Calcium 9.3 mg/dL (8.5-10.5) 05/07/22 04:53 Total Bilirubin 0.3 mg/dL (0.15-1.2) 05/07/22 04:53 AST 23 U/L (0-32) 05/07/22 04:53 ALT 18 U/L (0-33) 05/07/22 04:53 Alkaline Phosphatase 94 U/L (35-105) 05/07/22 04:53 C-Reactive Protein 3.0 mg/L (0.0-4.9) 05/07/22 04:53 Total Protein 7.5 g/dL (6.6-8.7) 05/07/22 04:53 Albumin 4.0 g/dL (3.5-5.2) 05/07/22 04:53 Globulin 3.5 g/dL (1.3-4.6) 05/07/22 04:53 Lipase 34 U/L (13-60) 05/07/22 04:53 Procalcitonin 0.05 ng/mL (0-0.5) 05/07/22 04:53 Urine Color Straw (Yellow) 05/07/22 06:25 Urine Appearance Clear (CLEAR) 05/07/22 06:25 Urine pH 7 (5-7) 05/07/22 06:25 Ur Specific [place] 1.005 (1.005-1.030) 05/07/22 06:25 Urine Protein Trace (Negative) 05/07/22 06:25 Urine Glucose (UA) Norm (Normal) 05/07/22 06:25 Urine Ketones 1+ (Negative) H 05/07/22 06:25 Urine Blood Trace (Negative) H 05/07/22 06:25 Urine Nitrate Negative (Negative) 05/07/22 06:25 Urine Bilirubin Neg (Negative) 05/07/22 06:25 Urine Urobilinogen Norm mg/dL (Negative) 05/07/22 06:25 Ur Leukocyte Esterase Negative (Negative) 05/07/22 06:25 Urine RBC 5-10 /hpf (0-2) H 05/07/22 06:25 Urine WBC None /hpf (0-5) 05/07/22 06:25 Ur Squamous Epith Cells None /hpf (0-5) 05/07/22 06:25 Amorphous Sediment Not Reportable 05/07/22 06:25 Urine Bacteria Trace /hpf (NONE) 05/07/22 06:25 Influenza Type A Ag negative (Negative) 05/07/22 04:30 Influenza Type B Ag negative (Negative) 05/07/22 04:30 SARS-CoV-2 Ag (Rapid) negative (Negative) 05/07/22 04:30 Discharge Plan Discharge Patient Disposition: Home Clinical Impression: Primary atypical pneumonia, Dehydration, mild, Nausea & vomiting Condition: Stable Prescriptions: New azithromycin 250 mg tablet See Rx Instructions .ROUTE .COMPLEX Qty: 6 0RF Rx Instructions: For 250 mg dose pack: take 500 mg today (day 1), then 250 mg for 4 days (days 2-5) ondansetron 4 mg tablet,disintegrating 4 mg PO Q6H PRN (Reason: nausea and vomiting) Qty: 20 0RF No Action budesonide-formoterol [Symbicort] 160-4.5 mcg/actuation HFA aerosol inhaler 2 puff inhalation BID Spiriva Respimat 1.25 mcg/actuation mist 2 puff inhalation DAILY albuterol sulfate [Ventolin HFA] 90 mcg/actuation HFA aerosol inhaler 2 puff inhalation Q6H PRN (Reason: Shortness Of Breath) levothyroxine 50 mcg capsule 50 mcg PO DAILY ondansetron 4 mg tablet,disintegrating 4 mg PO Q6H PRN (Reason: Nausea) hydrocodone-acetaminophen 5-325 mg tablet 1 tab PO Q6H PRN (Reason: Pain) polyethylene glycol 3350 [Miralax] 17 gram/dose Powder 17 g PO BID cetirizine 10 mg tablet 10 mg PO DAILY pantoprazole 40 mg tablet,delayed release (DR/EC) 40 mg PO DAILY montelukast 10 mg tablet 10 mg PO DAILY cholecalciferol (vitamin D3) [Vitamin D3] 25 mcg (1,000 unit) Capsule 25 mcg PO DAILY Spiriva Respimat 1.25 mcg/actuation mist 2 puff INHALATION BID Discharge Orders: Discharge ED (Routine); Ordered 05/07/22 Ordered By: Ivan Ramirez Referrals: Bobbi Stuart MD [Primary Care Provider] - Discharge Diet: Advance as tolerated Discharge Activity: Increase activity as tolerated Patient Instructions: Clear Liquid Diet (ED), Acute Nausea and Vomiting (DC), Pneumonia (ED), Opioid Safety, Pain Management Activity Restrictions/Additional Instructions: Follow-up with your primary care provider in towards the middle of next week for recheck of your symptoms Sign Out Sign Out Data: Patient Sign Out occurred on 05/07/22 at 06:06. Patient's care was discussed, and care was transferred from to Ivan Ramirez DO. Coding Level of Care Code ED Health Professional for Aníbal[place] Fwd Exam Comprehensive
[2022-05-07 05:06] LABS: Basophils % 0.3 %; Eosinophils % 0.3 %; Hematocrit 40.8 % (37.0-47.0); Hemoglobin 13.6 g/dL (11.5-15.3); Lymphocytes # 0.7 10^3/uL (0.8-4.8); Mean Corpuscular HGB Conc 33.3 g/dL (30.0-36.0); Mean Corpuscular Hemoglobin 30.2 pg (28.0-34.0); Mean Corpuscular Volume 90.7 fl (81-99); Mean Platelet Volume 10.5 fL (7.4-10.4); Monocytes # 0.7 10^3/uL (0.2-0.9); Monocytes % 9.9 %; Neutrophils # 5.85 10^3/uL (1.8-7.7); Nucleated Red Blood Cells % 0 %; Platelet Count 175 10^3/cmm (130-400); Red Cell Distribution Width 12.3 % (12.1-15.1); White Blood Count 7.4 10^3/uL (4.0-10.0)
[2022-05-07 05:24] LABS: Lactate (Lactic Acid level) 1.2 mmol/L (0.5-2.2)
[2022-05-07 05:25] LABS: Alanine Aminotransferase 18 U/L (0-33); Alkaline Phosphatase 94 U/L (35-105); Aspartate Amino Transferase 23 U/L (0-32); Blood Urea Nitrogen 12 mg/dL (8-23); Calcium 9.3 mg/dL (8.5-10.5); Carbon Dioxide 25 mmol/L (22-29); Chloride 97 mmol/L (98-107); Globulin 3.5 g/dL (1.3-4.6); Glomerular Filtration Rate 49.7 mL/min (90-130); Glucose 99 mg/dL (65-115); Lipase 34 U/L (13-60); Osmolality Calculated 272 mOsm/kg (285-295); Sodium 131 mmol/L (136-145); Total Bilirubin 0.3 mg/dL (0.15-1.2); Total Protein 7.5 g/dL (6.6-8.7)
[2022-05-07 05:32] LABS: Procalcitonin 0.05 ng/mL (0-0.5)
[2022-05-07 05:32] LABS: Influenza A by IFA negative (Negative); Influenza B by IFA negative (Negative); SARS Covid-2 Antigen negative (Negative)
[2022-05-07 05:35] VITALS: BP 124/58; RESP 18; O2SAT 95
[2022-05-07] MEDS: iohexol 350 mg/mL 100 mL Btl IV (05:50)
[2022-05-07 07:14] LABS: Glucose Urine UA Norm (Normal); Ketones Urine 1+ (Negative); Protein Urine Trace (Negative); Specific Gravity, Urine 1.005 (1.005-1.030); Urine Appearance Clear (CLEAR); Urine Color Straw (Yellow); pH Urine 7 (5-7)
[2022-05-07 07:15] LABS: Add Urine Microscopic? YES; Bilirubin Urine Neg (Negative); Blood Urine Trace (Negative); Leukocyte Esterase Urine Negative (Negative); Nitrate Urine Negative (Negative); Urobilinogen Urine Norm (Negative)
[2022-05-07 07:23] LABS: Bacteria Urine TRACE /hpf
[2022-05-07 07:24] LABS: Add Urine Culture? No
[2022-05-07 07:59] VITALS: BP 95/58; PULSE 85; RESP 16; O2SAT 95
== END 2022-05-07 08:00 | disposition home or self-care (01) ==
PROVIDERS: Emergency Medicine; Emergency Provider Student in an Organized Health Care Education/Training Program; PCP Family Medicine
DX: J44.0 Chronic obstructive pulmonary disease with (acute) lower respiratory infection (principal); J18.8 Other pneumonia, unspecified organism; E86.0 Dehydration; R11.2 Nausea with vomiting, unspecified; Z20.822 Contact with and (suspected) exposure to COVID-19
CPT/HCPCS: 36415; 71045; 74177; 80053; 80306; 81001; 81003; 83605; 83690; 84145; 85025; 86140; 87040; 87426; 87804; 96361; 96374; 96375; 96376; 99284; 99285; J1630; J1885; J2270; J2405; J7030; Q0161; Q9967

== ENCOUNTER 2022-05-07 15:40 | Emergency (ER) | payer MEDICARE, BC, SELFPAY ==
[2022-05-07] VITALS (13 sets, daily range): BP systolic 112–135; BP diastolic 56–70; PULSE 71–86; RESP 17–25; TEMP 36.3–38; O2SAT 95–98; BMI 19.5
[2022-05-07] MEDS: sodium chloride 0.9% 1,000 ML 999 ML IV ×2 (16:45→18:13)
[2022-05-07] MEDS: ondansetron 2 mg/ML SDV 2 mL 4 MG IVP ×2 (16:45→20:06)
--- NOTE | 2022-05-07 16:45 | ED_ITS ---
Documented by User: Ivan Ramirez DO 05/07/22 16:49 HPI - Nausea/Vomiting/Diarrhea General: Chief complaint: Nausea/Vomiting/Diarrhea Stated complaint: High fever, N/V Time Seen by Provider: 05/07/22 16:25 History of Present Illness: 66-year-old female presents with nausea vomiting and generalized malaise. Patient was seen in the ER this morning and had extensive work-up including labs and CT abdomen pelvis that was negative for any acute intra-abdominal abnormality. Patient's CT showed a possible early pneumonia so she was started on azithromycin and Zofran. Patient continues to have a fever along with nausea and vomiting so they brought her back to the ER. Associated nausea: Yes Associated symtoms: Reports nausea; Denies change in vision, chest pain, dizziness, headache(s) or palpitations Review of Systems Const: Reports: fever(s), chills and body aches Eyes: Denies: change in vision or blurry vision ENMT: Denies: throat pain or ear or mastoid pain Card: Denies: chest pain or palpitations Resp: Denies: dyspnea or wheezing GI: Reports: abdominal pain, nausea and vomiting : Denies: flank pain, difficulty voiding or urinary frequency Skin/Breast: Denies: rash or pruritus Neuro: Denies: headache(s) or dizziness PFSH ED PFSH: Medical History COPD (chronic obstructive pulmonary disease) GERD (gastroesophageal reflux disease) Hypothyroidism Intussusception Small bowel obstruction -resolving per clinical improvement, + BMs, improvement on imaging -continue bowel regimen -outpatient f/u with Dr. Bryant Surgical History H/O esophagogastroduodenoscopy S/P small bowel resection Status post colonoscopy Status post colonoscopy (06/24/21) diverticulosis, polyp Social History Smoking and tobacco status: never smoked Physical Exam Const: GENERAL APPEARANCE: ill appearing and frail appearing HENMT: COMMON NORMALS: normocephalic and hearing grossly normal bilaterally HEAD & SCALP: normocephalic Resp: COMMON NORMALS: normal respiratory effort, No retractions, No use of accessory muscles and clear to auscultation bilaterally AUSCULTATION: clear to auscultation bilaterally Cardio: COMMON NORMALS: regular rate and regular rhythm RATE: regular rate RHYTHM: regular rhythm GI: COMMON NORMALS: Soft to palpation INSPECTION: Yes normal to inspection and No abdominal distension PALPATION: Yes Soft to palpation and Yes Tenderness to palpation present (GI) (Diffuse) Extremity: COMMON NORMALS: capillary refill normal Neuro: COMMON NORMALS: no focal motor deficits and no sensory deficits noted Psych: COMMON NORMALS: speech normal APPEARANCE: Yes grossly normal SPEECH: Yes normal speech Skin: COMMON NORMALS: no rashes or lesions noted GENERAL SKIN EXAM: no rashes or lesions noted Course Vital Signs: Vital signs: Vital Signs Temperature 100.4 F H 05/07/22 20:31 Pulse Rate 86 05/07/22 19:30 Respiratory Rate 23 H 05/07/22 19:30 Blood Pressure 123/56 05/07/22 19:15 Pulse Oximetry 95 05/07/22 19:30 Oxygen Delivery Me thod 05/07/22 16:15 MDM - Nausea/Vomiting/Diarrhea Lab Data : 05/07/22 16:43 05/07/22 16:43 Laboratory Results WBC 5.0 10^3/uL (4.0-10.0) 05/07/22 16:43 RBC 4.63 10^6/uL (4.1-5.3) 05/07/22 16:43 Hgb 14.0 g/dL (11.5-15.3) 05/07/22 16:43 Hct 41.7 % (37.0-47.0) 05/07/22 16:43 MCV 90.1 fl (81-99) 05/07/22 16:43 MCH 30.2 pg (28.0-34.0) 05/07/22 16:43 MCHC 33.6 g/dL (30.0-36.0) 05/07/22 16:43 RDW 12.4 % (12.1-15.1) 05/07/22 16:43 Plt Count 171 10^3/cmm (130-400) 05/07/22 16:43 MPV 10.4 fL (7.4-10.4) 05/07/22 16:43 Neut % (Auto) 71.6 % 05/07/22 16:43 Lymph % (Auto) 15.0 % 05/07/22 16:43 Haines % (Auto) 12.8 % 05/07/22 16:43 Eos % (Auto) 0.0 % 05/07/22 16:43 Baso % (Auto) 0.4 % 05/07/22 16:43 Neut # (Auto) 3.59 10^3/uL (1.8-7.7) 05/07/22 16:43 Lymph # (Auto) 0.8 10^3/uL (0.8-4.8) 05/07/22 16:43 Haines # (Auto) 0.6 10^3/uL (0.2-0.9) 05/07/22 16:43 Eos # (Auto) 0.0 10^3/uL (0.0-0.8) 05/07/22 16:43 Baso # (Auto) 0.0 10^3/uL (0.0-0.1) 05/07/22 16:43 Nucleated RBC % (auto) 0 % 05/07/22 16:43 Nucleated RBCs # 0.0 /100WBC 05/07/22 16:43 Sodium 129 mmol/L (136-145) L 05/07/22 16:43 Potassium 3.7 mmol/L (3.5-5.1) 05/07/22 16:43 Chloride 95 mmol/L (98-107) L 05/07/22 16:43 Carbon Dioxide 23 mmol/L (22-29) 05/07/22 16:43 Anion Gap 14.7 (5-19) 05/07/22 16:43 BUN 10 mg/dL (8-23) 05/07/22 16:43 Creatinine 1.1 mg/dL (0.5-0.9) H 05/07/22 16:43 GFR Calculation 49.7 mL/min (90-130) L 05/07/22 16:43 Glucose 116 mg/dL (65-115) H 05/07/22 16:43 Calculated Osmolality 268 mOsm/kg (285-295) L 05/07/22 16:43 Lactate 1.5 mmol/L (0.5-2.2) 05/07/22 16:43 Calcium 9.2 mg/dL (8.5-10.5) 05/07/22 16:43 Total Bilirubin 0.3 mg/dL (0.15-1.2) 05/07/22 16:43 AST 34 U/L (0-32) H 05/07/22 16:43 ALT 28 U/L (0-33) 05/07/22 16:43 Alkaline Phosphatase 92 U/L (35-105) 05/07/22 16:43 C-Reactive Protein 4.1 mg/L (0.0-4.9) 05/07/22 16:43 Total Protein 7.7 g/dL (6.6-8.7) 05/07/22 16:43 Albumin 4.0 g/dL (3.5-5.2) 05/07/22 16:43 Globulin 3.7 g/dL (1.3-4.6) 05/07/22 16:43 Lipase 41 U/L (13-60) 05/07/22 16:43 Urine Color Yellow (Yellow) 05/07/22 19:05 Urine Appearance Clear (CLEAR) 05/07/22 19:05 Urine pH 5 (5-7) 05/07/22 19:05 Ur Specific [place] 1.010 (1.005-1.030) 05/07/22 19:05 Urine Protein Neg (Negative) 05/07/22 19:05 Urine Glucose (UA) Norm (Normal) 05/07/22 19:05 Urine Ketones 1+ (Negative) H 05/07/22 19:05 Urine Blood Neg (Negative) 05/07/22 19:05 Urine Nitrate Negative (Negative) 05/07/22 19:05 Urine Bilirubin Neg (Negative) 05/07/22 19:05 Urine Urobilinogen Neg mg/dL (Negative) 05/07/22 19:05 Ur Leukocyte Esterase Negative (Negative) 05/07/22 19:05 Urine Opiates Screen Positive ng/mL (Negative) H 05/07/22 19:05 Ur Barbiturates Screen Negative ng/mL (Negative) 05/07/22 19:05 Ur Phencyclidine Scrn Negative ng/mL (Negative) 05/07/22 19:05 Ur Amphetamines Screen Negative ng/mL (Negative) 05/07/22 19:05 U Benzodiazepines Scrn Negative ng/mL (Negative) 05/07/22 19:05 Urine Cocaine Screen Negative ng/mL (Negative) 05/07/22 19:05 U Marijuana (THC) Screen Negative ng/mL (Negative) 05/07/22 19:05 Discharge Plan Discharge Patient Disposition: Home Clinical Impression: Primary atypical pneumonia, Nausea & vomiting Condition: Stable Prescriptions: No Action budesonide-formoterol [Symbicort] 160-4.5 mcg/actuation HFA aerosol inhaler 2 puff inhalation BID Spiriva Respimat 1.25 mcg/actuation mist 2 puff inhalation DAILY albuterol sulfate [Ventolin HFA] 90 mcg/actuation HFA aerosol inhaler 2 puff inhalation Q6H PRN (Reason: Shortness Of Breath) levothyroxine 50 mcg capsule 50 mcg PO DAILY ondansetron 4 mg tablet,disintegrating 4 mg PO Q6H PRN (Reason: Nausea) hydrocodone-acetaminophen 5-325 mg tablet 1 tab PO Q6H PRN (Reason: Pain) polyethylene glycol 3350 [Miralax] 17 gram/dose Powder 17 g PO BID cetirizine 10 mg tablet 10 mg PO DAILY pantoprazole 40 mg tablet,delayed release (DR/EC) 40 mg PO DAILY montelukast 10 mg tablet 10 mg PO DAILY cholecalciferol (vitamin D3) [Vitamin D3] 25 mcg (1,000 unit) Capsule 25 mcg PO DAILY Spiriva Respimat 1.25 mcg/actuation mist 2 puff INHALATION BID azithromycin 250 mg tablet See Rx Instructions .ROUTE .COMPLEX Qty: 6 0RF Rx Instructions: For 250 mg dose pack: take 500 mg today (day 1), then 250 mg for 4 days (days 2-5) ondansetron 4 mg tablet,disintegrating 4 mg PO Q6H PRN (Reason: nausea and vomiting) Qty: 20 0RF Discharge Orders: Discharge ED (Routine); Ordered 05/07/22 Ordered By: Tomasz Oconnor Referrals: Bobbi Stuart MD [Primary Care Provider] - 1-3 days Patient Instructions: Opioid Safety, Pain Management, Vomiting - Adult Activity Restrictions/Additional Instructions: Your laboratory values remained stable this evening. The important thing is to treat your nausea, so that she can hold down your antibiotic. Take the pill you were dispensed when you get home this evening to help you rest, and for nausea. Take your prescribed Zofran given earlier every 6 hours scheduled while awake tomorrow whether you were nauseated or not. Then you may take as needed. Follow a liquid diet for 24 hours. Return for worsening shortness of breath despite treatment, fever despite 3 doses of antibiotics, vomiting liquids or medications despite treatment, any other concerning symptoms. Coding Level of Care Code ED Invertebrate Paleontologist for Chg Fwd Exam Comprehensive Documented by User: Tomasz Oconnor DO 05/08/22 03:37 HPI - Nausea/Vomiting/Diarrhea General: Chief complaint: Nausea/Vomiting/Diarrhea Stated complaint: High fever, N/V Time Seen by Provider: 05/07/22 16:25 PFSH ED PFSH: Medical History COPD (chronic obstructive pulmonary disease) GERD (gastroesophageal reflux disease) Hypothyroidism Intussusception Small bowel obstruction -resolving per clinical improvement, + BMs, improvement on imaging -continue bowel regimen -outpatient f/u with Dr. Bryant Surgical History H/O esophagogastroduodenoscopy S/P small bowel resection Status post colonoscopy Status post colonoscopy (06/24/21) diverticulosis, polyp Social History Smoking and tobacco status: never smoked Course Vital Signs: Vital signs: Vital Signs Temperature 100.4 F H 05/07/22 20:31 Pulse Rate 86 05/07/22 19:30 Respiratory Rate 23 H 05/07/22 19:30 Blood Pressure 123/56 05/07/22 19:15 Pulse Oximetry 95 05/07/22 19:30 Oxygen Delivery Me thod 05/07/22 16:15 MDM - Nausea/Vomiting/Diarrhea Medical Decision Making 66-year-old female checked out to me at shift change. She was seen earlier this morning, diagnosed with an atypical pneumonia, and given antibiotics. Infiltrate was not apparent on chest x-ray. Only by CT. CT of the belly was negative. She had continued to vomit at home, and returns. She is received 2 L of fluid still no leukocytosis. No elevation in her CRP. Her creatinine is stable at 1.1. Urinalysis is negative. Swabs for flu and COVID were negative this morning. Again, she will be discharged with symptomatic treatment, and to continue her antibiotics. Lab Data : 05/07/22 16:43 05/07/22 16:43 Laboratory Results WBC 5.0 10^3/uL (4.0-10.0) 05/07/22 16:43 RBC 4.63 10^6/uL (4.1-5.3) 05/07/22 16:43 Hgb 14.0 g/dL (11.5-15.3) 05/07/22 16:43 Hct 41.7 % (37.0-47.0) 05/07/22 16:43 MCV 90.1 fl (81-99) 05/07/22 16:43 MCH 30.2 pg (28.0-34.0) 05/07/22 16:43 MCHC 33.6 g/dL (30.0-36.0) 05/07/22 16:43 RDW 12.4 % (12.1-15.1) 05/07/22 16:43 Plt Count 171 10^3/cmm (130-400) 05/07/22 16:43 MPV 10.4 fL (7.4-10.4) 05/07/22 16:43 Neut % (Auto) 71.6 % 05/07/22 16:43 Lymph % (Auto) 15.0 % 05/07/22 16:43 Haines % (Auto) 12.8 % 05/07/22 16:43 Eos % (Auto) 0.0 % 05/07/22 16:43 Baso % (Auto) 0.4 % 05/07/22 16:43 Neut # (Auto) 3.59 10^3/uL (1.8-7.7) 05/07/22 16:43 Lymph # (Auto) 0.8 10^3/uL (0.8-4.8) 05/07/22 16:43 Haines # (Auto) 0.6 10^3/uL (0.2-0.9) 05/07/22 16:43 Eos # (Auto) 0.0 10^3/uL (0.0-0.8) 05/07/22 16:43 Baso # (Auto) 0.0 10^3/uL (0.0-0.1) 05/07/22 16:43 Nucleated RBC % (auto) 0 % 05/07/22 16:43 Nucleated RBCs # 0.0 /100WBC 05/07/22 16:43 Sodium 129 mmol/L (136-145) L 05/07/22 16:43 Potassium 3.7 mmol/L (3.5-5.1) 05/07/22 16:43 Chloride 95 mmol/L (98-107) L 05/07/22 16:43 Carbon Dioxide 23 mmol/L (22-29) 05/07/22 16:43 Anion Gap 14.7 (5-19) 05/07/22 16:43 BUN 10 mg/dL (8-23) 05/07/22 16:43 Creatinine 1.1 mg/dL (0.5-0.9) H 05/07/22 16:43 GFR Calculation 49.7 mL/min (90-130) L 05/07/22 16:43 Glucose 116 mg/dL (65-115) H 05/07/22 16:43 Calculated Osmolality 268 mOsm/kg (285-295) L 05/07/22 16:43 Lactate 1.5 mmol/L (0.5-2.2) 05/07/22 16:43 Calcium 9.2 mg/dL (8.5-10.5) 05/07/22 16:43 Total Bilirubin 0.3 mg/dL (0.15-1.2) 05/07/22 16:43 AST 34 U/L (0-32) H 05/07/22 16:43 ALT 28 U/L (0-33) 05/07/22 16:43 Alkaline Phosphatase 92 U/L (35-105) 05/07/22 16:43 C-Reactive Protein 4.1 mg/L (0.0-4.9) 05/07/22 16:43 Total Protein 7.7 g/dL (6.6-8.7) 05/07/22 16:43 Albumin 4.0 g/dL (3.5-5.2) 05/07/22 16:43 Globulin 3.7 g/dL (1.3-4.6) 05/07/22 16:43 Lipase 41 U/L (13-60) 05/07/22 16:43 Urine Color Yellow (Yellow) 05/07/22 19:05 Urine Appearance Clear (CLEAR) 05/07/22 19:05 Urine pH 5 (5-7) 05/07/22 19:05 Ur Specific [place] 1.010 (1.005-1.030) 05/07/22 19:05 Urine Protein Neg (Negative) 05/07/22 19:05 Urine Glucose (UA) Norm (Normal) 05/07/22 19:05 Urine Ketones 1+ (Negative) H 05/07/22 19:05 Urine Blood Neg (Negative) 05/07/22 19:05 Urine Nitrate Negative (Negative) 05/07/22 19:05 Urine Bilirubin Neg (Negative) 05/07/22 19:05 Urine Urobilinogen Neg mg/dL (Negative) 05/07/22 19:05 Ur Leukocyte Esterase Negative (Negative) 05/07/22 19:05 Urine Opiates Screen Positive ng/mL (Negative) H 05/07/22 19:05 Ur Barbiturates Screen Negative ng/mL (Negative) 05/07/22 19:05 Ur Phencyclidine Scrn Negative ng/mL (Negative) 05/07/22 19:05 Ur Amphetamines Screen Negative ng/mL (Negative) 05/07/22 19:05 U Benzodiazepines Scrn Negative ng/mL (Negative) 05/07/22 19:05 Urine Cocaine Screen Negative ng/mL (Negative) 05/07/22 19:05 U Marijuana (THC) Screen Negative ng/mL (Negative) 05/07/22 19:05 Discharge Plan Discharge Patient Disposition: Home Clinical Impression: Primary atypical pneumonia, Nausea & vomiting Condition: Stable Prescriptions: No Action budesonide-formoterol [Symbicort] 160-4.5 mcg/actuation HFA aerosol inhaler 2 puff inhalation BID Spiriva Respimat 1.25 mcg/actuation mist 2 puff inhalation DAILY albuterol sulfate [Ventolin HFA] 90 mcg/actuation HFA aerosol inhaler 2 puff inhalation Q6H PRN (Reason: Shortness Of Breath) levothyroxine 50 mcg capsule 50 mcg PO DAILY ondansetron 4 mg tablet,disintegrating 4 mg PO Q6H PRN (Reason: Nausea) hydrocodone-acetaminophen 5-325 mg tablet 1 tab PO Q6H PRN (Reason: Pain) polyethylene glycol 3350 [Miralax] 17 gram/dose Powder 17 g PO BID cetirizine 10 mg tablet 10 mg PO DAILY pantoprazole 40 mg tablet,delayed release (DR/EC) 40 mg PO DAILY montelukast 10 mg tablet 10 mg PO DAILY cholecalciferol (vitamin D3) [Vitamin D3] 25 mcg (1,000 unit) Capsule 25 mcg PO DAILY Spiriva Respimat 1.25 mcg/actuation mist 2 puff INHALATION BID azithromycin 250 mg tablet See Rx Instructions .ROUTE .COMPLEX Qty: 6 0RF Rx Instructions: For 250 mg dose pack: take 500 mg today (day 1), then 250 mg for 4 days (days 2-5) ondansetron 4 mg tablet,disintegrating 4 mg PO Q6H PRN (Reason: nausea and vomiting) Qty: 20 0RF Discharge Orders: Discharge ED (Routine); Ordered 05/07/22 Ordered By: Tomasz Oconnor Referrals: Bobbi Stuart MD [Primary Care Provider] - 1-3 days Patient Instructions: Opioid Safety, Pain Management, Vomiting - Adult Activity Restrictions/Additional Instructions: Your laboratory values remained stable this evening. The important thing is to treat your nausea, so that she can hold down your antibiotic. Take the pill you were dispensed when you get home this evening to help you rest, and for nausea. Take your prescribed Zofran given earlier every 6 hours scheduled while awake tomorrow whether you were nauseated or not. Then you may take as needed. Follow a liquid diet for 24 hours. Return for worsening shortness of breath despite treatment, fever despite 3 doses of antibiotics, vomiting liquids or medications despite treatment, any other concerning symptoms. Coding Level of Care Code ED Invertebrate Paleontologist for Maurizio Toth Exam Comprehensive
[2022-05-07 16:48] LABS: Basophils % 0.4 %; Hematocrit 41.7 % (37.0-47.0); Lymphocytes # 0.8 10^3/uL (0.8-4.8); Mean Corpuscular HGB Conc 33.6 g/dL (30.0-36.0); Mean Corpuscular Hemoglobin 30.2 pg (28.0-34.0); Mean Corpuscular Volume 90.1 fl (81-99); Mean Platelet Volume 10.4 fL (7.4-10.4); Monocytes # 0.6 10^3/uL (0.2-0.9); Monocytes % 12.8 %; Neutrophils # 3.59 10^3/uL (1.8-7.7); Neutrophils % 71.6 %; Nucleated Red Blood Cells % 0 %; Platelet Count 171 10^3/cmm (130-400); Red Blood Count 4.63 10^6/uL (4.1-5.3); Red Cell Distribution Width 12.4 % (12.1-15.1)
[2022-05-07 17:12] LABS: Alanine Aminotransferase 28 U/L (0-33); Alkaline Phosphatase 92 U/L (35-105); Anion Gap 14.7 (5-19); Aspartate Amino Transferase 34 U/L (0-32); Blood Urea Nitrogen 10 mg/dL (8-23); C Reactive Protein 4.1 mg/L (0.0-4.9); Calcium 9.2 mg/dL (8.5-10.5); Carbon Dioxide 23 mmol/L (22-29); Chloride 95 mmol/L (98-107); Globulin 3.7 g/dL (1.3-4.6); Glomerular Filtration Rate 49.7 mL/min (90-130); Glucose 116 mg/dL (65-115); Lipase 41 U/L (13-60); Osmolality Calculated 268 mOsm/kg (285-295); Potassium 3.7 mmol/L (3.5-5.1); Sodium 129 mmol/L (136-145); Total Bilirubin 0.3 mg/dL (0.15-1.2); Total Protein 7.7 g/dL (6.6-8.7)
[2022-05-07 17:13] LABS: Lactate (Lactic Acid level) 1.5 mmol/L (0.5-2.2)
[2022-05-07 19:11] LABS: Add Urine Microscopic? NO; Charge for UA Resulting for Rev
[2022-05-07 19:24] LABS: Amphetamines Screen Urine Negative (Negative); Barbiturates Screen Urine Negative (Negative); Benzodiazepines Screen Urine Negative (Negative); Cocaine Screen Urine Negative (Negative); Opiate Screen Urine Positive (Negative); PCP Screen Urine Negative (Negative); THC Screen Urine Negative (Negative)
[2022-05-07 19:31] LABS: Bilirubin Urine Neg (Negative); Blood Urine Neg (Negative); Glucose Urine UA Norm (Normal); Ketones Urine 1+ (Negative); Leukocyte Esterase Urine Negative (Negative); Nitrate Urine Negative (Negative); Protein Urine Neg (Negative); Urine Appearance Clear (CLEAR); Urine Color Yellow (Yellow); Urobilinogen Urine Neg (Negative); pH Urine 5 (5-7)
[2022-05-07] MEDS: ketorolac 30 mg/mL INJ 15 MG IVP (20:06)
[2022-05-07] MEDS: haloperidol inj 5 mg/mL INJ 1 mL 2 MG IVP (20:06)
[2022-05-07] MEDS: chlorPROMazine 25 mg Tablet PO (21:16)
== END 2022-05-07 21:22 | disposition home or self-care (01) ==
PROVIDERS: Student in an Organized Health Care Education/Training Program; Emergency Provider Emergency Medicine; PCP Family Medicine
DX: J44.0 Chronic obstructive pulmonary disease with (acute) lower respiratory infection (principal); J18.8 Other pneumonia, unspecified organism; R11.2 Nausea with vomiting, unspecified
CPT/HCPCS: 80053; 80306; 81003; 83605; 83690; 85025; 86140; 96361; 96374; 96375; 96376; 99284; J1630; J1885; J2405; J7030; Q0161

== ENCOUNTER 2022-09-19 13:22 | Outpatient (CLI) | payer MEDICARE, SELFPAY ==
--- NOTE | 2022-09-19 13:48 | MR_ITS ---
WS: [id number] EXAMINATION: MR shoulder RT wo con* [id number] ORDER DATE: 09/19/2022 1:55 PM COMPARISON: None. HISTORY: RIGHT SHOULDER PAIN CONTRAST: None. TECHNIQUE: Axial T2 STAR, coronal proton density fat sat, sagittal T2 fat sat, sagittal proton densit y fat sat, axial proton density fat sat, coronal T2 fat sat, and coronal T1 performed. After contrast , axial T1 fat sat, coronal T1 fat sat, and sagittal T1 fat sat were performed. FINDINGS: Degenerative arthritis at the AC joint with edema and moderate downsloping acromion. Impingement on t he distal supraspinatus. Small amount of fluid and edema in the AC joint. Chronic thinning of the dis karen supraspinatus appears intact. Mild tendinopathy distal supraspinatus. Normal infraspinatus. Normal teres minor. Distal subscapularis appears intact. Normal biceps tendon i n the bicipital groove. Degenerative fraying of the glenoid labrum. Intra-articular biceps tendon kathya ears intact. MR/MR shoulder RT wo con* [id number] IMPRESSION: 1. Advanced degenerative arthritis AC joint with edema with a small amount of subacromial fluid. Impingement on the distal supraspinatus with downsloping of the acromion. 2. Chronic thinning of the distal supraspinatus with tendinopathy. 3. Rotator cuff is intact. 4. Biceps tendon intact within the bicipital groove. 5. Degenerative fraying of the glenoid labrum.
== END 2022-09-19 13:23 | disposition home or self-care (01) ==
PROVIDERS: PCP Family Medicine; Visit Provider Family Medicine
DX: M19.011 Primary osteoarthritis, right shoulder (principal); R60.0 Localized edema
CPT/HCPCS: 73221

== ENCOUNTER 2022-10-17 11:04 | Outpatient (CLI) | payer MEDICARE, SELFPAY ==
--- NOTE | 2022-10-17 11:20 | MM_ITS ---
WS: [id number] SCREENING DIGITAL BREAST TOMOSYNTHESIS MAMMOGRAM WITH CAD HISTORY: SCREENING COMPARISON: 08/13/2020, 06/13/2019 Bilateral CC and MLO with tomosynthesis and synthetic mammography submitted. Computer aided detection analyzed. Breast composition: There are scattered areas of fibroglandular density. There is an asymmetry measur ing 7 mm seen only on the RIGHT MLO projection towards the axillary tail. This is not included on the CC projection. Similar finding has been noted on prior studies but appears more pronounced today. Be nign bilateral calcifications. MM/[place] [id number] IMPRESSION: BI-RADS: 0-Incomplete: Need additional imaging evaluation FOLLOW UP: Need Additional Imaging RIGHT breast: Spot compression views (exaggerated lateral CC and MLO). True ML. Ultrasound to follow if abnormality persists.
--- NOTE | 2022-10-17 11:20 | XR_ITS ---
WS: [id number] SCREENING DEXA SCAN [employer] CLINICAL INFORMATION: POSTMENOPAUSAL COMPARISON: None. FINDINGS: The L1-L4 bone mineral density measures 0.743 g/cm2. This corresponds to a T score score of -3.6 and Z score of -1.5. Left femoral neck bone mineral density measures 0.651 g/cm2. This corresponds to a T score of -2.8 an d Z score of -1.2. Right femoral neck bone mineral density measures 0.637 g/cm2. This corresponds to a T score -2.9of an d Z score of -1.3. Mean femoral neck bone mineral density measures 0.644 g/cm2. This corresponds to a T score of -2.9 an d Z score of -1.2. XR/XR DEXA axial skeleton* [id number] IMPRESSION: Osteoporosis lumbar spine. Osteoporosis femoral necks. Patient's FRAX calculated 10 year probability for major osteoporotic fracture i s 16.3 % and osteoporotic hip fracture is 5.6%.
== END 2022-10-17 11:05 | disposition home or self-care (01) ==
LOC: RAD 11:05
PROVIDERS: PCP Family Medicine; Visit Provider Family Medicine
DX: Z12.31 Encounter for screening mammogram for malignant neoplasm of breast (principal); Z78.0 Asymptomatic menopausal state
CPT/HCPCS: 77063; 77067; 77080

== ENCOUNTER 2022-11-08 12:40 | Oncology outpatient (recurring) (ONCR) | payer MEDICARE, SELFPAY ==
[2022-11-08 13:10] VITALS: BP 139/73; PULSE 66; RESP 18; TEMP 36.8; O2SAT 99
[2022-11-08 14:05] VITALS: BP 130/76; PULSE 56; RESP 18; TEMP 36.8; O2SAT 99
== END 2022-12-07 23:59 | disposition home or self-care (01) ==
LOC: ONCMED 12:41
PROVIDERS: PCP Family Medicine; Visit Provider Family Medicine
DX: M81.0 Age-related osteoporosis without current pathological fracture (principal)
CPT/HCPCS: 96365; J3489

== ENCOUNTER 2022-11-09 04:30 | Emergency (ER) | payer MEDICARE, SELFPAY ==
[2022-11-09 04:36] VITALS: BP 106/60; PULSE 127; RESP 20; TEMP 37.3; O2SAT 94; BMI 19.7
--- NOTE | 2022-11-09 04:38 | XRR_ITS ---
PROCEDURE INFORMATION: Exam: XR Chest Exam date and time: 11/09/2022 4:47 AM Age: 67 years old Clinical indication: Pain; Chest pressure; Patient HX: C/O chest tightness; Additional info: Cp TECHNIQUE: Imaging protocol: Radiologic exam of the chest. Views: 1 view. COMPARISON: 1. CT chest w con* [id number] 02/08/2019 9:[address] abdomen pelvis w con* [id number] 05/07/2022 5:41 AM 3. CR XR chest 1V portable [id number] 05/07/2022 4:39 AM FINDINGS: Lungs: There is no consolidation. There is coarse linear opacity in the infrahilar right lung with adjacent small ill-defined nodules. The finding is more apparent than on 05/07/2022, and corresponds to lingular opacities visible on chest CT 02/08/2019. Partial atelectasis was seen in the lingula on abdomen CT 05/07/2022. Pleural spaces: There is no pleural effusion or pneumothorax. Heart/Mediastinum: Cardiomediastinal contours are unremarkable. Bones/joints: Bones are unremarkable. XR/XR chest 1V portable [id number] IMPRESSION: Persistent or recurrent reticulonodular opacity in the right lower lung. Combined with findings on prior chest and abdomen CTs, these findings suggest chronic or recurrent atypical mycobacterial infection versus scarring related to remote infection.
--- NOTE | 2022-11-09 04:40 | ECG_ITS ---
[facility] Test Date: 2022-11-09 Pat Name: Sheridan Love Department: Room: Gender: Female Immigration Law Specialist: : 1955 Requested By: Hyacinth Garcia Order Number: [id number] Cal MD: Tommy Souza M.D. Measurements Intervals [place] Rate: 82 P: 70 DE: 133 QRS: 54 QRSD: 72 T: 62 QT: 374 QTc: 437 Interpretive Statements SINUS RHYTHM No previous ECG available for comparison Electronically Signed On 11-09-2022 14:18:38 CDT by Tommy Souza M.D. [email or web address]
--- NOTE | 2022-11-09 04:40 | W.ED.CHESTPA ---
HPI - Chest Pain General: Chief Complaint: Allergic Reaction Stated Complaint: allergic reaction Time Seen by Provider: 11/09/22 04:31 Source: patient Mode of arrival: ambulatory Limitations: no limitations History of Present Illness: 67-year-old female she had history of osteoporosis states that yesterday she had her first injection of zoledronic acid to treat her osteoporosis. She states that this evening she has been having body aches chills states she feels like all her bones hurt and has chest pain she states that these side effects were in the insert. She denies any fever states she feels severely weak. Denies any worsening improving factors. Associated symptoms: Reports nausea; Deny abdominal pain, dyspnea, fever(s) or vomiting Review of Systems Const: Reports: chills, body aches and change in appetite; Denies: fever(s) Eyes: Denies: blurry vision or eye discomfort ENMT: Denies: throat pain or dental pain Card: Reports: chest pain Resp: Denies: dyspnea GI: Reports: nausea; Denies: abdominal pain, vomiting or diarrhea : Denies: dysuria Musc: Reports: neck pain and back pain Skin/Breast: Denies: rash Neuro: Denies: headache(s) Psych: Reports: depression Lane/Lymph: Reports: easy bruising All/Imm: Reports: urticaria PFSH ED PFSH: Medical History COPD (chronic obstructive pulmonary disease) GERD (gastroesophageal reflux disease) Hypothyroidism Intussusception Small bowel obstruction -resolving per clinical improvement, + BMs, improvement on imaging -continue bowel regimen -outpatient f/u with Dr. Bryant Surgical History H/O esophagogastroduodenoscopy S/P small bowel resection Status post colonoscopy Status post colonoscopy (06/24/21) diverticulosis, polyp Social History Smoking and tobacco status: never smoked Physical Exam Const: COMMON NORMALS: patient oriented x3 HENMT: COMMON NORMALS: normocephalic and atraumatic HEAD & SCALP: normocephalic and atraumatic Eye: COMMON NORMALS: conjunctivae normal CONJUNCTIVA: Yes conjunctivae normal Neck/C-Spine: COMMON NORMALS: full ROM and supple Chest: COMMONS NORMALS: normal inspection of the chest and normal palpation of entire chest wall Resp: COMMON NORMALS: normal respiratory effort, No retractions, No use of accessory muscles and clear to auscultation bilaterally AUSCULTATION: clear to auscultation bilaterally Cardio: COMMON NORMALS: regular rate, regular rhythm and No murmurs present (Cardio) RATE: regular rate RHYTHM: regular rhythm GI: COMMON NORMALS: Normal to inspection, nondistended, normoactive bowel sounds present, Soft to palpation, non-tender and no masses PALPATION: Yes Soft to palpation Extremity: COMMON NORMALS: normal to inspection and full ROM Neuro: COMMON NORMALS: patient oriented x3, moves all extremities and no focal motor deficits Psych: COMMON NORMALS: mental status grossly normal, Normal thought process present and cooperative THOUGHT PROCESS: Normal thought process present Skin: COMMON NORMALS: no rashes or lesions noted and no wounds GENERAL SKIN EXAM: no rashes or lesions noted Course Vital Signs: Vital signs: Vital Signs Temperature 99.1 F 11/09/22 04:36 Pulse Rate 127 H 11/09/22 04:36 Respiratory Rate 16 11/09/22 05:08 Blood Pressure 106/60 11/09/22 04:36 Pulse Oximetry 94 11/09/22 04:36 Oxygen Delivery Me thod Room Air 11/09/22 04:36 MDM - Chest Pain Medical Decision Making Patient presents here with generalized weakness along with multiple aches likely from her injection for her osteoporosis she feels much improved after fluids and pain meds patient's blood work here is normal including normal troponin no signs of cardiac cause she has no signs of infection. She is stable for discharge she is to follow-up with PCP and return if worsening she understands agrees to plan. Medical Records I reviewed the patient's medical records. Lab Data I reviewed the patient's lab results. 11/09/22 04:52 11/09/22 04:52 Laboratory Results WBC 12.1 10^3/uL (4.0-10.0) H 11/09/22 04:52 RBC 4.52 10^6/uL (4.1-5.3) 11/09/22 04:52 Hgb 13.7 g/dL (11.5-15.3) 11/09/22 04:52 Hct 40.7 % (37.0-47.0) 11/09/22 04:52 MCV 90.0 fl (81-99) 11/09/22 04:52 MCH 30.3 pg (28.0-34.0) 11/09/22 04:52 MCHC 33.7 g/dL (30.0-36.0) 11/09/22 04:52 RDW 12.0 % (12.1-15.1) L 11/09/22 04:52 Plt Count 185 10^3/cmm (130-400) 11/09/22 04:52 MPV 10.6 fL (7.4-10.4) H 11/09/22 04:52 Neut % (Auto) 92.2 % 11/09/22 04:52 Lymph % (Auto) 4.4 % 11/09/22 04:52 [place]ock % (Auto) 2.4 % 11/09/22 04:52 Eos % (Auto) 0.1 % 11/09/22 04:52 Baso % (Auto) 0.2 % 11/09/22 04:52 Neut # (Auto) 11.19 10^3/uL (1.8-7.7) H 11/09/22 04:52 Lymph # (Auto) 0.5 10^3/uL (0.8-4.8) L 11/09/22 04:52 [place]ock # (Auto) 0.3 10^3/uL (0.2-0.9) 11/09/22 04:52 Eos # (Auto) 0.0 10^3/uL (0.0-0.8) 11/09/22 04:52 Baso # (Auto) 0.0 10^3/uL (0.0-0.1) 11/09/22 04:52 Nucleated RBC % (auto) 0 % 11/09/22 04:52 Nucleated RBCs # 0.0 /100WBC 11/09/22 04:52 Sodium 136 mmol/L (136-145) 11/09/22 04:52 Potassium 4.2 mmol/L (3.5-5.1) 11/09/22 04:52 Chloride 101 mmol/L (98-107) 11/09/22 04:52 Carbon Dioxide 24 mmol/L (22-29) 11/09/22 04:52 Anion Gap 15.2 (5-19) 11/09/22 04:52 BUN 17 mg/dL (8-23) 11/09/22 04:52 Creatinine 0.9 mg/dL (0.5-0.9) 11/09/22 04:52 GFR Calculation 62.5 mL/min (90-130) L 11/09/22 04:52 Glucose 125 mg/dL (65-115) H 11/09/22 04:52 Calculated Osmolality 285 mOsm/kg (285-295) 11/09/22 04:52 Calcium 9.2 mg/dL (8.5-10.5) 11/09/22 04:52 Total Bilirubin 0.9 mg/dL (0.15-1.2) 11/09/22 04:52 AST 26 U/L (0-32) 11/09/22 04:52 ALT 14 U/L (0-33) 11/09/22 04:52 Alkaline Phosphatase 83 U/L (35-105) 11/09/22 04:52 Troponin T Baseline 9 ng/L (0-10) 11/09/22 04:52 Total Protein 7.0 g/dL (6.6-8.7) 11/09/22 04:52 Albumin 4.1 g/dL (3.5-5.2) 11/09/22 04:52 Globulin 2.9 g/dL (1.3-4.6) 11/09/22 04:52 EKG Data EKG 1: I personally reviewed and interpreted this EKG as follows: EKG interpretation date: 11/09/22 EKG interpretation time: 04:40 Interpretation: nsr hr [address] or t wave abnormalities qrs 72 qtc 412 Discharge Plan Discharge Patient Disposition: Home Clinical Impression: Fatigue, Generalized muscle ache Condition: Stable Prescriptions: No Action budesonide-formoterol [Symbicort] 160-4.5 mcg/actuation HFA aerosol inhaler 2 puff inhalation BID Spiriva Respimat 1.25 mcg/actuation mist 2 puff inhalation DAILY albuterol sulfate [Ventolin HFA] 90 mcg/actuation HFA aerosol inhaler 2 puff inhalation Q6H PRN (Reason: Shortness Of Breath) levothyroxine 50 mcg capsule 50 mcg PO DAILY ondansetron 4 mg tablet,disintegrating 4 mg PO Q6H PRN (Reason: Nausea) hydrocodone-acetaminophen 5-325 mg tablet 1 tab PO Q6H PRN (Reason: Pain) polyethylene glycol 3350 [Miralax] 17 gram/dose Powder 17 g PO BID cetirizine 10 mg tablet 10 mg PO DAILY pantoprazole 40 mg tablet,delayed release (DR/EC) 40 mg PO DAILY montelukast 10 mg tablet 10 mg PO DAILY cholecalciferol (vitamin D3) [Vitamin D3] 25 mcg (1,000 unit) Capsule 25 mcg PO DAILY Spiriva Respimat 1.25 mcg/actuation mist 2 puff INHALATION BID azithromycin 250 mg tablet See Rx Instructions .ROUTE .COMPLEX Qty: 6 0RF Rx Instructions: For 250 mg dose pack: take 500 mg today (day 1), then 250 mg for 4 days (days 2-5) ondansetron 4 mg tablet,disintegrating 4 mg PO Q6H PRN (Reason: nausea and vomiting) Qty: 20 0RF Discharge Orders: Discharge ED (Routine); Ordered 11/09/22 Ordered By: Hyacinth Garcia Referrals: Bobbi Stuart MD [Primary Care Provider] - 1-3 days Discharge Diet: Advance as tolerated Discharge Activity: Resume usual activity Patient Instructions: Myalgia, Weakness (ED), Musculoskeletal Pain (ED) Coding Level of Care Code ED [employer] for Maurizio Toth
[2022-11-09 04:57] LABS: Basophils % 0.2 %; Eosinophils % 0.1 %; Hematocrit 40.7 % (37.0-47.0); Hemoglobin 13.7 g/dL (11.5-15.3); Lymphocytes # 0.5 10^3/uL (0.8-4.8); Lymphocytes % 4.4 %; Mean Corpuscular HGB Conc 33.7 g/dL (30.0-36.0); Mean Corpuscular Hemoglobin 30.3 pg (28.0-34.0); Mean Platelet Volume 10.6 fL (7.4-10.4); Monocytes # 0.3 10^3/uL (0.2-0.9); Monocytes % 2.4 %; Neutrophils # 11.19 10^3/uL (1.8-7.7); Neutrophils % 92.2 %; Nucleated Red Blood Cells % 0 %; Platelet Count 185 10^3/cmm (130-400); Red Blood Count 4.52 10^6/uL (4.1-5.3); White Blood Count 12.1 10^3/uL (4.0-10.0)
[2022-11-09 05:08] VITALS: RESP 16
[2022-11-09] MEDS: morphine 4 mg/mL SDV 1 mL IVP (05:08)
[2022-11-09] MEDS: ondansetron 2 mg/ML SDV 2 mL 4 MG IVP (05:08)
[2022-11-09] MEDS: acetaminophen 500 mg Tablet 1000 MG PO (05:09)
[2022-11-09 05:18] LABS: Troponin(5th) Baseline 9 ng/L (0-10)
[2022-11-09 05:20] LABS: Alanine Aminotransferase 14 U/L (0-33); Albumin Level 4.1 g/dL (3.5-5.2); Alkaline Phosphatase 83 U/L (35-105); Anion Gap 15.2 (5-19); Aspartate Amino Transferase 26 U/L (0-32); Blood Urea Nitrogen 17 mg/dL (8-23); Calcium 9.2 mg/dL (8.5-10.5); Carbon Dioxide 24 mmol/L (22-29); Chloride 101 mmol/L (98-107); Globulin 2.9 g/dL (1.3-4.6); Glomerular Filtration Rate 62.5 mL/min (90-130); Glucose 125 mg/dL (65-115); Osmolality Calculated 285 mOsm/kg (285-295); Potassium 4.2 mmol/L (3.5-5.1); Sodium 136 mmol/L (136-145); Total Bilirubin 0.9 mg/dL (0.15-1.2)
[2022-11-09] MEDS: sodium chloride 0.9% 1,000 ML 999 ML IV (05:33)
[2022-11-09 06:00] VITALS: BP 114/60; PULSE 81; RESP 16; O2SAT 93
== END 2022-11-09 07:09 | disposition home or self-care (01) ==
PROVIDERS: Emergency Provider Emergency Medicine; PCP Family Medicine
DX: R53.83 Other fatigue (principal); M79.10 Myalgia, unspecified site; J44.9 Chronic obstructive pulmonary disease, unspecified
CPT/HCPCS: 71045; 80053; 84484; 85025; 93005; 96361; 96374; 96375; 99285; J2270; J2405; J7030

== ENCOUNTER 2022-11-24 11:09 | Outpatient (CLI) | payer MEDICARE, SELFPAY | END 2022-11-24 11:10 | disposition home or self-care (01) | PROVIDERS: PCP Family Medicine; Visit Provider Family Medicine | DX: R92.8 Other abnormal and inconclusive findings on diagnostic imaging of breast (principal); M75.41 Impingement syndrome of right shoulder; M19.011 Primary osteoarthritis, right shoulder | CPT/HCPCS: 73030; 77061; 99204; G0279 ==

== ENCOUNTER 2022-11-24 11:21 | Outpatient (CLI) | payer MEDICARE, SELFPAY ==
--- NOTE | 2022-11-24 11:26 | MM_ITS ---
WS: [email or web address] ADDITIONAL VIEWS RIGHT MAMMOGRAM WITH DIGITAL BREAST TOMOSYNTHESIS. HISTORY: ABNORMAL MAMMO, asymmetry RIGHT MLO. COMPARISON: 10/17/2022, 08/13/2020 RIGHT MAMMOGRAM: Spot compression views and true ML with digital breast tomosynthesis and SM. The asymmetry seen only on the RIGHT MLO projection towards superior breast resolves with additional imaging. This was likely superimposed fibroglandular densities. Benign stable coarse calcifications i n the central breast. MM/[place] [id number] IMPRESSION: BI-RADS: 2-Benign FOLLOW UP: 1 Year Follow-up Return to annual screening mammography.
== END 2022-11-24 11:22 | disposition home or self-care (01) ==
PROVIDERS: PCP Family Medicine; Visit Provider Family Medicine
DX: R92.8 Other abnormal and inconclusive findings on diagnostic imaging of breast (principal)
CPT/HCPCS: 77061; G0279

== ENCOUNTER 2022-12-22 07:20 | Outpatient (RCR) | payer MEDICARE, SELFPAY | END 2023-01-03 23:59 | disposition home or self-care (01) | LOC: SPT 07:20 | PROVIDERS: PCP Family Medicine; Visit Provider Student in an Organized Health Care Education/Training Program | DX: M25.511 Pain in right shoulder (principal) | CPT/HCPCS: 97110; 97161 ==

== ENCOUNTER 2023-01-03 16:38 | Outpatient (CLI) | payer MEDICARE, SELFPAY ==
--- NOTE | 2023-01-03 17:07 | XR_ITS ---
WS: [email or web address] Exam: XR foot RT min 3V* [id number] Date/Time of Exam: 01/03/2023 5:08 PM Reason For Exam: Right foot injury No acute fracture or dislocation. No soft tissue foreign bodies identified. Mild degenerative changes . XR/XR foot RT min 3V* [id number] IMPRESSION: 1. No fracture or other significant finding.
== END 2023-01-03 16:39 | disposition home or self-care (01) ==
PROVIDERS: PCP Family Medicine; Visit Provider Nurse Practitioner Family
DX: S99.921A Unspecified injury of right foot, initial encounter (principal); X58.XXXA Exposure to other specified factors, initial encounter
CPT/HCPCS: 73630

== ENCOUNTER → 2023-03-03 09:04 | Outpatient (BNVA) | payer MEDICARE, SELFPAY | PROVIDERS: PCP Family Medicine; Visit Provider Student in an Organized Health Care Education/Training Program | DX: M75.41 Impingement syndrome of right shoulder (principal); M19.011 Primary osteoarthritis, right shoulder | CPT/HCPCS: 99213 ==

== ENCOUNTER → 2023-05-19 09:35 | Outpatient (BNVA) | payer MEDICARE, SELFPAY | PROVIDERS: PCP Family Medicine; Visit Provider Podiatrist Foot & Ankle Surgery | DX: M79.671 Pain in right foot (principal); M79.672 Pain in left foot; M20.10 Hallux valgus (acquired), unspecified foot; M77.41 Metatarsalgia, right foot; M77.42 Metatarsalgia, left foot; M24.573 Contracture, unspecified ankle | CPT/HCPCS: 73630; 99203 ==

== ENCOUNTER 2023-07-06 14:22 | Outpatient (CLI) | payer MEDICARE, SELFPAY | END 2023-07-06 14:23 | disposition home or self-care (01) | LOC: SPT 14:23 | PROVIDERS: PCP Family Medicine; Visit Provider Podiatrist Foot & Ankle Surgery | DX: Z46.89 Encounter for fitting and adjustment of other specified devices (principal); M72.2 Plantar fascial fibromatosis | CPT/HCPCS: L3030 ==

== ENCOUNTER → 2023-08-25 08:38 | Outpatient (BNVA) | payer MEDICARE, SELFPAY | PROVIDERS: PCP Family Medicine; Visit Provider Podiatrist Foot & Ankle Surgery | DX: M77.41 Metatarsalgia, right foot; M77.42 Metatarsalgia, left foot; M20.12 Hallux valgus (acquired), left foot; M20.11 Hallux valgus (acquired), right foot; M24.571 Contracture, right ankle; M24.572 Contracture, left ankle | CPT/HCPCS: 99213 ==

== ENCOUNTER 2023-11-06 08:27 | Oncology outpatient (recurring) (ONCR) | payer MEDICARE, SELFPAY ==
[2023-11-06] MEDS: denosumab 60 mg SDV SUBCUT (09:41)
[2023-11-06 10:16] LABS: Calcium 8.9 mg/dL (8.5-10.5)
== END 2023-11-07 23:59 | disposition home or self-care (01) ==
LOC: ONCMED 08:28
PROVIDERS: PCP Family Medicine; Visit Provider Family Medicine
DX: M81.0 Age-related osteoporosis without current pathological fracture (principal); Z79.899 Other long term (current) drug therapy
CPT/HCPCS: 36415; 82310; 96372; J0897

== ENCOUNTER 2024-01-18 08:30 | Outpatient (CLI) | payer MEDICARE, SELFPAY ==
--- NOTE | 2024-01-18 08:35 | MM_ITS ---
WS: [email or web address] BILATERAL 3D TOMOSYNTHESIS DIGITAL SCREENING MAMMOGRAPHY WITH CAD CLINICAL INFORMATION: SCREENING HISTORY: Screening mammogram. No current complaints. COMPARISON: 2022 TECHNIQUE: Bilateral CC and MLO views. FINDINGS: Scattered fibroglandular densities bilaterally. No suspicious focal mass, asymmetry, calcifications, or architectural distortion. No evidence of malignancy. Incidental punctate and lucent centered calci fications. Stable coarse calcifications. MM/[place] [id number] IMPRESSION: BI-RADS: 2-Benign FOLLOW UP: 1 Year Follow-up Recommend return to annual screening mammography.
== END 2024-01-18 08:30 | disposition home or self-care (01) ==
PROVIDERS: PCP Family Medicine; Visit Provider Family Medicine
DX: Z12.31 Encounter for screening mammogram for malignant neoplasm of breast (principal); R92.323 Mammographic fibroglandular density, bilateral breasts; R92.1 Mammographic calcification found on diagnostic imaging of breast
CPT/HCPCS: 77063; 77067

== ENCOUNTER → 2024-02-01 09:41 | Outpatient (BNVA) | payer MEDICARE, SELFPAY | PROVIDERS: PCP Family Medicine; Visit Provider Physician Assistant | DX: M75.41 Impingement syndrome of right shoulder (principal); M19.011 Primary osteoarthritis, right shoulder | CPT/HCPCS: 20610; 99213; J3301 ==

== ENCOUNTER 2024-05-14 12:05 | Outpatient (CLI) | payer MEDICARE, SELFPAY ==
--- NOTE | 2024-05-14 12:10 | XR_ITS ---
WS: [email or web address] XR lumbar spine min 4V [id number] REASON FOR EXAM: LOW BACK PAIN FINDINGS: Moderate levoscoliosis. Normal lordosis. No significant vertebral body abnormality. Intervertebral disc spaces are intact and relatively well preserved. Mild narrowing of the T12-L1 and L2-L3 disc spaces. No spondylolysis. No significant spondylolisthesis. No significant vertebral body movement with flexi on or extension. Mild degenerative changes in the facet joints L4-S1. XR/XR lumbar spine min 4V [id number] IMPRESSION: Mild degenerative spondylosis of the lumbar spine as above.
--- NOTE | 2024-05-14 12:10 | XR_ITS ---
WS: [email or web address] XR thoracic spine 2V [id number] REASON FOR EXAM: LOW BACK PAIN FINDINGS: Mild dextroscoliosis. Mild biconcave compression deformities of T5 and T6. The uppermost thoracic vertebrae not evaluated o n the lateral image. No significant compression deformity or focal lesion of the vertebral bodies. Disc spaces demonstrate mild narrowing in the lower thoracic spine with mild osteophytosis. XR/XR thoracic spine 2V [id number] IMPRESSION: Mild scoliosis and degenerative spondylosis of the thoracic spine.
== END 2024-05-14 12:06 | disposition home or self-care (01) ==
LOC: RAD 12:06
PROVIDERS: PCP Family Medicine; Visit Provider Family Medicine
DX: M54.50 Low back pain, unspecified (principal); M41.84 Other forms of scoliosis, thoracic region; M47.894 Other spondylosis, thoracic region; M47.896 Other spondylosis, lumbar region; M41.86 Other forms of scoliosis, lumbar region
CPT/HCPCS: 72070; 72110

== ENCOUNTER 2024-05-17 09:38 | Oncology outpatient (recurring) (ONCR) | payer MEDICARE, SELFPAY ==
[2024-05-17] MEDS: denosumab 60 mg SDV SUBCUT (10:00)
[2024-05-17 10:02] VITALS: BP 112/64; PULSE 66; RESP 16; TEMP 36.8; O2SAT 99
== END 2024-06-08 23:59 | disposition home or self-care (01) ==
LOC: ONCMED 09:38
PROVIDERS: PCP Family Medicine; Visit Provider Family Medicine
DX: M81.0 Age-related osteoporosis without current pathological fracture (principal); Z79.899 Other long term (current) drug therapy
CPT/HCPCS: 96372; J0897

== ENCOUNTER 2024-09-20 08:53 | Oncology outpatient (recurring) (ONCR) | payer MEDICARE, SELFPAY ==
[2024-09-20] MEDS: omalizumab 150 mg SDV 300 MG SUBCUT (09:18)
[2024-09-20 09:19] VITALS: BP 143/88; PULSE 64; RESP 17; TEMP 36.9; O2SAT 98
== END 2024-10-07 23:59 | disposition home or self-care (01) ==
PROVIDERS: PCP Family Medicine; Visit Provider Allergy & Immunology
DX: L50.1 Idiopathic urticaria (principal); M81.0 Age-related osteoporosis without current pathological fracture; Z79.899 Other long term (current) drug therapy
CPT/HCPCS: 96372; J2357

== ENCOUNTER 2024-10-18 10:45 | Oncology outpatient (recurring) (ONCR) | payer MEDICARE, SELFPAY ==
[2024-10-18] MEDS: omalizumab 150 mg SDV 300 MG SUBCUT (10:53)
--- NOTE | 2024-10-18 12:58 | XR_ITS ---
WS: [email or web address] SCREENING DEXA SCAN [employer] CLINICAL INFORMATION: ASYMPTOMATIC MENOPAUSAL STATE COMPARISON: 2022 FINDINGS: The L1-L4 bone mineral density measures 0.805 g/cm2. This corresponds to a T score score of -3.1 and Z score of -1.0. Left femoral neck bone mineral density measures 0.700 g/cm2. This corresponds to a T score of -2.4 and Z score of -0.7. Right femoral neck bone mineral density measures 0.670 g/cm2. This corresponds to a T score -2.7of and Z score of -0.9. Mean femoral neck bone mineral density measures 0.685 g/cm2. This corresponds to a T score of -2.6 and Z score of -0.8. XR/XR DEXA axial skeleton* [id number] IMPRESSION: Osteoporosis lumbar spine. Osteoporosis femoral necks. Patient's FRAX calculated 10 year probability for major osteoporotic fracture i s 16.5% and osteoporotic hip fracture is 5.6%. Bone mineral density lumbar spine increased 8.3% Bone mineral density femoral neck increased 6.4%
== END 2024-11-06 23:59 | disposition home or self-care (01) ==
PROVIDERS: PCP Family Medicine; Visit Provider Allergy & Immunology
DX: L50.1 Idiopathic urticaria (principal); M81.0 Age-related osteoporosis without current pathological fracture; Z79.899 Other long term (current) drug therapy; Z78.0 Asymptomatic menopausal state
CPT/HCPCS: 77080; 96372; J2357

== ENCOUNTER 2024-11-26 11:14 | Oncology outpatient (recurring) (ONCR) | payer MEDICARE, SELFPAY ==
[2024-11-26] MEDS: omalizumab 150 mg SDV 300 MG SUBCUT (11:49)
[2024-11-26] MEDS: denosumab 60 mg SDV SUBCUT (11:49)
--- NOTE | 2024-11-26 11:59 | PC.NURSE ---
1150- Patient request Xolair sq injection in her left upper arm. States she always received injection in her arm when she got it in [place] office. Refuses abdomen or thigh injection at this time. - Deborah Patton
[2024-11-26 12:00] VITALS: BP 123/75; PULSE 68; RESP 17; TEMP 36.8; O2SAT 98
== END 2024-12-07 23:59 | disposition home or self-care (01) ==
PROVIDERS: PCP Family Medicine; Visit Provider Allergy & Immunology
DX: L50.1 Idiopathic urticaria (principal); M81.0 Age-related osteoporosis without current pathological fracture; Z79.899 Other long term (current) drug therapy
CPT/HCPCS: 96372; J0897; J2357

== ENCOUNTER 2024-12-24 12:26 | Oncology outpatient (recurring) (ONCR) | payer MEDICARE, SELFPAY ==
[2024-12-24] MEDS: omalizumab 150 mg SDV 300 MG SUBCUT (13:42)
[2024-12-24 13:45] VITALS: BP 124/68; PULSE 72; RESP 18; TEMP 36.6; O2SAT 98
== END 2025-01-06 23:59 | disposition home or self-care (01) ==
PROVIDERS: PCP Family Medicine; Visit Provider Allergy & Immunology
DX: L50.1 Idiopathic urticaria (principal); M81.0 Age-related osteoporosis without current pathological fracture; Z79.899 Other long term (current) drug therapy
CPT/HCPCS: 96401; J2357

== ENCOUNTER 2025-01-24 09:01 | Oncology outpatient (recurring) (ONCR) | payer MEDICARE, SELFPAY ==
[2025-01-24] MEDS: omalizumab 150 mg SDV 300 MG SUBCUT (09:32)
== END 2025-02-06 23:59 | disposition home or self-care (01) ==
PROVIDERS: PCP Family Medicine; Visit Provider Allergy & Immunology
DX: L50.1 Idiopathic urticaria (principal); Z79.899 Other long term (current) drug therapy
CPT/HCPCS: 96401; J2357

== ENCOUNTER 2025-02-21 08:57 | Oncology outpatient (recurring) (ONCR) | payer MEDICARE, SELFPAY ==
[2025-02-21] MEDS: omalizumab 150 mg SDV 300 MG SUBCUT (09:16)
[2025-02-21 09:29] VITALS: BP 112/74; PULSE 76; RESP 16; TEMP 36.6; O2SAT 98
== END 2025-03-09 23:59 | disposition home or self-care (01) ==
PROVIDERS: PCP Family Medicine; Visit Provider Allergy & Immunology
DX: L50.1 Idiopathic urticaria (principal); M81.0 Age-related osteoporosis without current pathological fracture; Z79.899 Other long term (current) drug therapy
CPT/HCPCS: 96372; J2357

== ENCOUNTER 2025-03-21 08:57 | Oncology outpatient (recurring) (ONCR) | payer MEDICARE, SELFPAY ==
[2025-03-21] MEDS: omalizumab 150 mg SDV 300 MG SUBCUT (09:17)
== END 2025-04-08 23:59 | disposition home or self-care (01) ==
PROVIDERS: PCP Family Medicine; Visit Provider Allergy & Immunology
DX: L50.1 Idiopathic urticaria (principal); Z79.899 Other long term (current) drug therapy
CPT/HCPCS: 96372; J2357

== ENCOUNTER 2025-04-16 07:58 | Outpatient (CLI) | payer MEDICARE, SELFPAY ==
--- NOTE | 2025-04-16 08:06 | MR_ITS ---
WS: [email or web address] MRI LUMBAR SPINE NONCONTRAST HISTORY: LUMBAR MYELOPATHY COMPARISON: Lumbar spine radiograph 03/12/2025 TECHNIQUE: Sagittal and axial multisequence imaging is submitted. Mild narrowing of the cervical spine at C6-7 due to an osteophyte and facet joint arthritis. Normal lumbar alignment. There is a very small amount of marrow edema in the RIGHT lateral inferior articular facet of L5. No acute fractures. Disc spaces and vertebral body heights are well-preserved. Conus terminates normally at L1-2 disc level. T12-L1: Broad-based disc bulging encroaching upon the ventral thoracic cord with minimal displacement. Very mild central and foraminal stenosis. L1-L2: Mild annular disc bulging with mild ligamentum flavum and facet arthritis. Mild foraminal stenosis. L2-L3: Mild annular disc bulging with a RIGHT foraminal disc protrusion. Mild ligamentum flavum and facet arthritis. There is also a very small central disc protrusion. No central stenosis. Mild RIGHT foraminal stenosis. L3-L4: Diffuse disc bulging with shallow broad-based disc protrusions in the foramina and annular fissures. Moderate ligamentum flavum and facet arthritis. Combination of findings resulting in mild to moderate central, subarticular recess and bilateral foraminal stenosis. L4-L5: Diffuse disc bulging with marked ligamentum flavum and facet arthritis. Fluid in the facet joints bilaterally. Mild to moderate central with bilateral subarticular recess and moderate foraminal stenosis. There is disc contacting the L4 and L5 nerve roots. L5-S1: Mild disc bulging with ligamentum flavum and facet arthritis. Small central disc protrusion with mild contact on the S1 nerve roots. Mild bilateral subarticular recess and foraminal stenosis.5 mm facet joint cyst on the RIGHT. Small bilateral extrarenal pelves. No calyceal dilatation. MR/MR lumbar spine wo con* [id number] IMPRESSION: 1. No acute lumbar spine fracture. 2. Multilevel areas of stenosis due to combination of disc, osteophyte and fac et joint arthritis. 3. Mild to moderate central with bilateral subarticular recess and moderate fo raminal stenosis at L4-5. Mild disc contact on the L4 and L5 nerve roots. 4. Mild to moderate central with bilateral subarticular recess and foraminal s tenosis at L3-4. Broad-based shallow disc protrusions in the foramina with axel lar fissures. 5. Mild bilateral foraminal stenosis at L1-2 and on the RIGHT at L2-3. 6. Mild disc contact on the S1 nerve roots at L5-S1. Mild bilateral subarticul ar recess and foraminal stenosis. 7. Facet joint cyst on the RIGHT at L5-S1 with mild bilateral synovitis involv ing the facet joints.
== END 2025-04-16 07:59 | disposition home or self-care (01) ==
LOC: RAD 08:00
PROVIDERS: PCP Electrodiagnostic Medicine; Visit Provider Electrodiagnostic Medicine
DX: M47.16 Other spondylosis with myelopathy, lumbar region (principal); M25.78 Osteophyte, vertebrae; M51.35 Other intervertebral disc degeneration, thoracolumbar region; M51.369 Other intervertebral disc degeneration, lumbar region without mention of lumbar back pain or lower extremity pain; M51.379 Other intervertebral disc degeneration, lumbosacral region without mention of lumbar back pain or lower extremity pain; M47.816 Spondylosis without myelopathy or radiculopathy, lumbar region; M48.061 Spinal stenosis, lumbar region without neurogenic claudication
CPT/HCPCS: 72148

== ENCOUNTER 2025-04-28 13:51 | Oncology outpatient (recurring) (ONCR) | payer MEDICARE, SELFPAY ==
[2025-04-28] MEDS: omalizumab 150 mg SDV 300 MG SUBCUT (14:11)
== END 2025-05-09 23:59 | disposition home or self-care (01) ==
PROVIDERS: PCP Electrodiagnostic Medicine; Visit Provider Allergy & Immunology
DX: L50.1 Idiopathic urticaria (principal); Z79.899 Other long term (current) drug therapy
CPT/HCPCS: 96372; J2357

== ENCOUNTER 2025-05-30 09:01 | Oncology outpatient (recurring) (ONCR) | payer MEDICARE, SELFPAY ==
[2025-05-30] MEDS: omalizumab 150 mg SDV 300 MG SUBCUT (09:18)
--- NOTE | 2025-05-30 09:31 | MM_ITS ---
WS: [email or web address] SCREENING DIGITAL BREAST TOMOSYNTHESIS MAMMOGRAM WITH CAD HISTORY: SCREENING COMPARISON: 01/18/2024, 11/24/2022, 10/17/2022 Bilateral CC and MLO with tomosynthesis and synthetic mammography submitted. Computer aided detection analyzed. Breast composition: There are scattered areas of fibroglandular density. There are 2 new asymmetries in the upper outer quadrant of the LEFT breast at a mid to anterior depth. These asymmetries are partially visualized due to the dense adjacent soft tissue. Benign calcifications noted within each breast. MM/MM [facility] tomosynthesis [id number] IMPRESSION: BI-RADS: 0 - Incomplete: Need additional imaging evaluation. FOLLOW UP: Need Additional Imaging LEFT breast: Spot compression views (CC and MLO). True ML. Ultrasound to follow if abnormality persists.
== END 2025-06-08 23:59 | disposition home or self-care (01) ==
PROVIDERS: PCP Electrodiagnostic Medicine; Visit Provider Allergy & Immunology
DX: Z12.31 Encounter for screening mammogram for malignant neoplasm of breast (principal); L50.1 Idiopathic urticaria; Z79.899 Other long term (current) drug therapy; R92.323 Mammographic fibroglandular density, bilateral breasts; N64.89 Other specified disorders of breast; R92.1 Mammographic calcification found on diagnostic imaging of breast
CPT/HCPCS: 77063; 77067; 96372; J2357

== ENCOUNTER 2025-06-24 09:15 | Outpatient (CLI) | payer MEDICARE, SELFPAY ==
--- NOTE | 2025-06-24 09:23 | MM_ITS ---
WS: [email or web address] ADDITIONAL VIEWS LEFT MAMMOGRAM WITH DIGITAL BREAST TOMOSYNTHESIS. HISTORY: ABNORMAL MAMMOGRAM COMPARISON: 01/18/2024, 05/30/2025, 08/13/2020 Spot compression views LEFT breast in CC, MLO projections and true ML submitted with digital breast tomosynthesis and SM. Breast composition: There are scattered areas of fibroglandular density. The asymmetry in the upper outer quadrant LEFT breast at middle depth is less masslike on additional views. There is no distortion. There are benign calcifications in the upper outer quadrant. Well-circumscribed 5 mm high density mass in the anterior LEFT breast near 3:00. Ultrasound to follow. LEFT breast ultrasound, limited. No mass or asymmetry LEFT breast at 1-2 o'clock. Normal fibroglandular tissue. There is a well-circumscribed cyst at 3:00, 1 cm from the nipple measuring 0.5 x 0.4 x 0.3 cm. This does correspond to the mammographic abnormality. MM/MM diag LT tomosynthesis [id number] IMPRESSION: BI-RADS: 2 - Benign. FOLLOW UP: 1 Year Follow-up Benign cyst LEFT breast at 3:00. Return to annual screening mammography.
== END 2025-06-24 09:16 | disposition home or self-care (01) ==
LOC: RAD 09:16
PROVIDERS: PCP Electrodiagnostic Medicine; Visit Provider Electrodiagnostic Medicine
DX: R92.8 Other abnormal and inconclusive findings on diagnostic imaging of breast (principal); N64.89 Other specified disorders of breast; N63.21 Unspecified lump in the left breast, upper outer quadrant; R92.1 Mammographic calcification found on diagnostic imaging of breast
CPT/HCPCS: 76642; 77061; 77063

== ENCOUNTER 2025-06-27 09:28 | Oncology outpatient (recurring) (ONCR) | payer MEDICARE, SELFPAY ==
[2025-06-27] MEDS: omalizumab 150 mg SDV 300 MG SUBCUT (09:51)
== END 2025-07-09 23:59 | disposition home or self-care (01) ==
PROVIDERS: PCP Electrodiagnostic Medicine; Visit Provider Allergy & Immunology
DX: L50.1 Idiopathic urticaria (principal); Z79.899 Other long term (current) drug therapy
CPT/HCPCS: 96372; J2357